=== PATIENT | female | born 1960 | race African-American/Black ===

== ENCOUNTER → 2017-12-07 09:50 | Outpatient (CLI) | payer BC, SELFPAY ==
--- NOTE | 2017-12-07 10:00 | FL_ITS ---
EXAM: Barium swallow/esophagram. INDICATION: ITS.REASON: CHRONIC CONSTIPATION ORDERING PHYSICIAN: Nimco Phipps MD PATIENT AGE: 56 years COMPARISON: None TECHNIQUE: In the upright position the patient was observed to swallow barium in both the AP and lateral view. The cervical esophagus was examined under fluoroscopy with images obtained. The patient was then placed prone in the right anterior oblique position and was observed to swallow barium with Valsalva technique . FLUOROSCOPY TIME: 1 minute and 4 seconds FINDINGS: There was no evidence of aspiration. There was normal peristalsis. No filling defects or mucosal abnormalities. No masses or strictures. IMPRESSION: Negative barium swallow.
== END ==
PROVIDERS: Family Provider Family Medicine; PCP Family Medicine; Visit Provider Emergency Medicine
DX: K59.09 Other constipation (principal)
CPT/HCPCS: 74220

== ENCOUNTER 2020-06-01 11:03 | Emergency (ER) | payer BC, SELFPAY ==
[2020-06-01 11:10] VITALS: BP 126/76; PULSE 72; RESP 19; TEMP 36.9; O2SAT 98; BMI 20.2
--- NOTE | 2020-06-01 11:51 | HMH.EDUTC ---
[facility] Disposition Clinical Impression: Hand pain Qualifiers: Laterality: right Qualified Code(s): M79.641 - Pain in right hand Disposition: Home, Self-Care Condition on Discharge: Good Instructions: DI for Chronic Pain -- Adult, DI for Rheumatoid Arthritis, Celecoxib Additional Instructions: Take medication as prescribed Follow up with your Family Doctor if no improvement or any worsening of symptoms Return if needed Straight to ER if any life threatening symptoms Prescriptions: Celecoxib 200 mg PO DAILY #30 cap Prescription Printed Referrals: Salvador Zamora MD [Primary Care Provider] - As needed Time of Disposition: 12:04 Medical Decision Making - Ang Inquiry Pt receiving controlled substance: No Ang was queried for this patient: No Vital Signs: 06/01/20 11:10 06/01/20 12:05 Temperature 98.4 F 98.4 F Temperature Source Oral Pulse Rate 72 Pulse Rate [Right Brachial] 72 Respiratory Rate 19 19 Blood Pressure 126/76 Blood Pressure [Right Arm] 126/76 Blood Pressure Mean [Right Arm] 92 Blood Pressure Source [Right Arm] Automatic Cuff Blood Pressure Position [Right Arm] Sitting 02 Sat by Pulse Oximetry 98 Oxygen Delivery Method Room Air [facility] HPI - General Stated complaint: rght hand hurts, can't bend fingers Time Seen by Provider: 06/01/20 11:51 Mode of Arrival: Ambulatory Source of Information: Patient Limitations: No Limitations Description of Symptoms (Recalled from Triage Doc. by RN): PATIENT C/O RIGHT HAND PAIN SINCE YESTERDAY. UNABLE TO BEND FINGERS HEENT Symptoms (Recalled from RN notes): No Resp Symptoms (Recalled from RN notes): No Skin Symptoms (Recalled from RN notes): No MS Symptoms (Recalled from RN notes): Yes Functional Status (Recalled from RN notes): WNL - History of Present Illness Provider Complaint: Patient states that she has been dx before with tendonitis and arthritits State that she was on Celeccoxib and her refills run out in Mar and she has taken all of her medication States that it has helped in the past with this same pain so she wanted to see of she could get a prescription for some States that she is having pain in her hands and hurts when she bends her fingers - Related Data Home Medications Medication Instructions Recorded Confirmed docusate sodium 100 mg tablet 100 mg PO DAILY 01/19/18 02/08/18 Mineral Oil [Mineral Oil extra 30 ml PO BID 02/03/18 02/08/18 heavy 30mL UDC] Previous Rx's Medication Instructions Recorded peg 3350-electrolytes 236 240 ml PO Q10M #4000 ml 01/19/18 gram-22.74 gram-6.74 gram-5.86 gram solution peg 3350-electrolytes 236 240 ml PO Q10M #4000 ml 01/25/18 gram-22.74 gram-6.74 gram-5.86 gram solution Celecoxib 200 mg PO DAILY #30 cap 06/01/20 Allergies Allergy/AdvReac Type Severity Reaction Status Date / Time No Known Allergies Allergy Verified 02/08/18 10:15 - Worker's Comp Is this a Worker's Comp case?: No [facility] History - Hepatitis A Screen Drug use history?: No High risk sexual behaviors?: No History of sexually transmitted infection?: No Currently employed?: No Childcare worker?: No Do you have indoor plumbing?: Yes Do you have electricity?: Yes Attestation statement:: This patient has been screened for Hepatitis A risk factors. I have reviewed the patient's past medical history: Yes Medical History: Denies:: Diabetes Mellitus Type 1, Diabetes Mellitus Type 2, Lung Disease, Seizures Other Surgeries: Yes: Colonoscopy, Hysterectomy-Partial, Other - Social History Smoking Status: Never smoker Alcohol Intake: never Substance Use Type: denies use Occupational Status: other Housing: house Household Members: children Family Hx:: Hypertension, Diabetes, Cancer ROS Obtained: Yes All systems reviewed & no additional complaints, Yes Systems reviewed as appropriate & no additional complaints - Allergic/Immunologic Comments: Pain in right hand/fingers with movement Ph
[2020-06-01 12:05] VITALS: BP 126/76; PULSE 72; RESP 19; TEMP 36.9; O2SAT 98
== END 2020-06-01 12:07 | disposition home or self-care (01) ==
PROVIDERS: Emergency Provider Nurse Practitioner; PCP Family Medicine
DX: M79.641 Pain in right hand (principal)
CPT/HCPCS: 99202; G0463

== ENCOUNTER → 2020-07-24 08:46 | Outpatient (CLI) | payer BC, SELFPAY ==
--- NOTE | 2020-07-24 08:48 | XR_ITS ---
PROCEDURE: XR DEXA AXIAL SKELETON CLINICAL HISTORY: POSTMENOPAUSAL COMPARISON: No exams were available for comparison FINDINGS: The right hip BMD is 0.739 with a T-score of -1.0. The left hip BMD is 0.874 with a T-score of -0.6. The lumbar spine BMD is 1.165 with a T-score of 1.1. IMPRESSION: This patient is considered normal according to the World Health Organization criteria. Fracture risk is low. Based on these results a follow-up exam is recommended in 2 year. Dictated by: Nikunj Weiner MD 07/24/2020 18:27 Nikunj Weiner MD in [place] 07/25/2020 09:24
--- NOTE | 2020-07-24 08:49 | MM_ITS ---
PROCEDURE INFORMATION: Exam: Screening 3D Mammography Exam date and time: 07/24/2020 8:49 AM Age: 59 years old Clinical indication: Encounter for screening mammogram for malignant neoplasm of breast TECHNIQUE: Imaging protocol: Screening tomosynthesis and 2D mammography including computer-aided detection (CAD) when performed. COMPARISON: [facility] DIG MAMM-SCREEN EDUARDO 09/11/2013 4:18 PM FINDINGS: MAMMOGRAPHY: Breast composition: There are scattered areas of fibroglandular density. Mass: No new suspicious masses. Architectural distortion: No suspicious distortion. Calcifications: No suspicious calcifications. Asymmetric density: None. Skin thickening: None. Axillary adenopathy: None. IMPRESSION: No mammographic evidence of malignancy. Annual screening is recommended unless otherwise clinically indicated. ASSESSMENT: BI-RADS Category 1: Negative
== END ==
PROVIDERS: PCP Family Medicine; Visit Provider Physician Assistant
DX: Z12.31 Encounter for screening mammogram for malignant neoplasm of breast (principal); Z78.0 Asymptomatic menopausal state
CPT/HCPCS: 77063; 77067; 77080

== ENCOUNTER → 2020-11-02 12:34 | Outpatient (CLI) | payer BC, SELFPAY | PROVIDERS: PCP Family Medicine; Visit Provider Family Medicine | DX: Z20.822 Contact with and (suspected) exposure to COVID-19 (principal) | CPT/HCPCS: U0003 ==

== ENCOUNTER 2021-07-25 01:00 | Inpatient (IN) | payer BC, SELFPAY ==
[2021-07-25] VITALS (23 sets, daily range): BP systolic 114–172; BP diastolic 69–90; PULSE 52–85; RESP 12–20; TEMP 36.6–43; O2SAT 96–100; BMI 20.3
--- NOTE | 2021-07-25 01:42 | CT_ITS ---
PROCEDURE INFORMATION: Exam: CT Abdomen And Pelvis With Contrast Exam date and time: 07/25/2021 2:48 AM Age: 60 years old Clinical indication: Prior surgery; Surgery type: HX partial hysterectomy, cholecystectomy, appendectomy; Patient HX: Abdominal pain that started yesterday; Additional info: Abd pain TECHNIQUE: Imaging protocol: Computed tomography of the abdomen and pelvis with contrast. Radiation optimization: All CT scans at this facility use at least one of these dose optimization techniques: automated exposure control; mA and/or kV adjustment per patient size (includes targeted exams where dose is matched to clinical indication); or iterative reconstruction. Contrast material: ISOVUE; Contrast volume: 75 ml; Contrast route: IV; COMPARISON: DX BE FL barium enema 02/03/2018 11:36 AM FINDINGS: Lungs: Clear basilar lung parenchyma. Pleural spaces: No pleural fluid. Heart: Normal heart size. Liver: Normal. No mass. Gallbladder and bile ducts: Normal. No calcified stones. No ductal dilation. Pancreas: Normal. No ductal dilation. Spleen: Scattered splenic granulomas. Adrenal glands: Normal. No mass. Kidneys and ureters: Kidneys enhance symmetrically and demonstrate no evidence of mass, calculus, obstruction, or inflammation. Stomach and bowel: High-density material in the stomach is likely ingested medication or mineral containing dietary supplement. Diffusely dilated small bowel with severe dilation distally. Small bowel feces noted. Maximal diameter of obstructed small bowel is 4.3 cm. Transition point appears to be in the distal ileum although the etiology unclear. Far distal small bowel is decompressed. There is a large volume fecal debris throughout the colon but this is not the obstructing process. Appendix: No evidence of appendicitis. Intraperitoneal space: Low volume free fluid. No free air. Vasculature: Unremarkable. No abdominal aortic aneurysm. Lymph nodes: Unremarkable. No enlarged lymph nodes. Urinary bladder: Unremarkable as visualized. Reproductive: Features of prior hysterectomy noted. No evidence of vaginal cuff or adnexal mass. Bones/joints: Unremarkable. No acute fracture. Soft tissues: Unremarkable. IMPRESSION: Exam demonstrates high-grade small-bowel obstruction, likely due to adhesions. There is low volume free fluid but no free air.
[2021-07-25 01:51] LABS: Microscopic, Urine URINE MICROSCOPIC (MICROSCOPIC)
[2021-07-25 02:00] LABS: Appearance,Urine CLEAR (Clear); Blood, Urine TRACE-I (Negative); Color,Urine YELLOW (Yellow); Glucose,Urine (UA) Negative (Negative); Ketones,Urine 2+ (Negative); Leukocyte Esterase,Urine TRACE (Negative); Nitrate,Urine Negative (Negative); PH,Urine 5.5 (5.0-8.5); Protein,Urine Negative (Negative); Specific Gravity, Urine >= 1.030 (1.005-1.030); Urobilinogen,Urine 0.2 EU/dl (0.2)
[2021-07-25 02:01] LABS: Alanine Aminotransferase 21 U/L (12-78); Albumin Level 4.3 g/dl (3.5-5.0); Albumin/Globulin Ratio 1.4 (1.1-1.8); Alkaline Phosphatase 76 U/L (38-126); Amylase 67 U/L (30-110); Anion Gap 9.5 mEq/L (5-15); Aspartate Amino Transferase 27 U/L (14-36); Bilirubin,Total 0.7 mg/dl (0.2-1.3); Blood Urea Nitrogen 14 mg/dl (7-17); Calcium 9.7 mg/dl (8.4-10.2); Carbon Dioxide 33 mmol/L (22.0-30.0); Chloride 102 mmol/L (98-107); Creatinine Clearance Estimated 94 mL/min (50-200); Estimated Glomerular Filt Rate 102 ml/min (>60); GFR (African American) 124 ML/MIN (>60); Glucose 108 mg/dl (74-100); Lipase 35 U/L (23-300); Potassium 3.5 mmoL/L (3.5-5.1); Sodium 141 mmol/L (136-145); Total Protein,Serum 7.3 g/dl (6.3-8.2)
[2021-07-25 02:07] LABS: C-Reactive Protein 3.7 mg/L (0-4)
--- NOTE | 2021-07-25 02:09 | HMH.EDNVD ---
ED Disposition Clinical Impression: SBO (small bowel obstruction) Disposition: Admitted As Inpatient Condition on Discharge: Fair Instructions: DI for Acute Abdominal Pain Referrals: Salvador Zamora MD [Primary Care Provider] - - Critical Care Critical Care Time: No Attestation: On 07/25/21, the high probability of a clinically significant, sudden or life threatening deterioration of the following system(s) required my full and direct attention, intervention and personal management. The time I documented below is in addition to time spent performing reported procedures but includes the following listed in this critical care notation. Medical Decision Making - Medical Records Medical records reviewed: Yes: I reviewed the patient's medical records. - Ang Inquiry Pt receiving controlled substance: No Vital Signs: 07/25/21 01:01 Temperature 98.1 F Temperature Source Oral Pulse Rate [Left] 57 L Respiratory Rate 12 Blood Pressure [Right Arm] 119/77 Blood Pressure Mean [Right Arm] 91 02 Sat by Pulse Oximetry 100 Oxygen Delivery Method Room Air - Lab Data Lab results reviewed: Yes: I reviewed the patient's lab results. Lab Results 07/25/21 01:22: Urine Color Yellow, Urine Appearance Clear, Urine pH 5.5, Ur Specific [place] >= 1.030, Urine Protein Negative, Urine Glucose (UA) Negative, Urine Ketones 2+, Urine Blood Trace-i, Urine Nitrate Negative, Urine Bilirubin Negative, Urine Urobilinogen 0.2, Ur Leukocyte Esterase Trace, Urine RBC 3-5, Urine WBC 3-5, Ur Squamous Epith Cells 3-5, Calcium Oxalate Crystal 1+, Urine Bacteria 1+ 07/25/21 01:22: Sodium 141, Potassium 3.5, Chloride 102, Carbon Dioxide 33 H, Anion Gap 9.5, BUN 14, Creatinine 0.60, Estimated Creat Clear 94, Estimated GFR 102, Est GFR ( Amer) 124, Glucose 108 H, Calcium 9.7, Total Bilirubin 0.7, AST 27, ALT 21, Alkaline Phosphatase 76, C-Reactive Protein 3.7, Total Protein 7.3, Albumin 4.3, Globulin 3.0, Albumin/Globulin Ratio 1.4, Amylase 67, Lipase 35 07/25/21 01:22: Lactate 1.0 07/25/21 01:22: Troponin I < 0.01 07/25/21 02:07: WBC 6.6, RBC 5.50 H, Hgb 14.2, Hct 44.4, MCV 80.8 L, MCH 25.9 L, MCHC 32.0, RDW 14.8, Plt Count 274, MPV 8.2, Neut % (Auto) 72.5, Lymph % (Auto) 18.3, [place] % (Auto) 6.4, Eos % (Auto) 1.3, Baso % (Auto) 1.4, Neut # (Auto) 4.8, Lymph # (Auto) 1.2, [place] # (Auto) 0.4, Eos # (Auto) 0.1, Baso # (Auto) 0.1, ESR 16 Result diagrams: 07/25/21 02:07 07/25/21 01:22 Orders (Tests/Meds): ED MEDICATIONS Generic Name Dose Route Start Last Admin Trade Name Freq PRN Reason Stop Dose Admin Lactated Ringer's 1,000 mls @ 999 mls/hr 07/25/21 01:45 07/25/21 02:00 Lactated Ringer's 1000 Ml Bag IV 07/25/21 02:45 999 mls/hr .Q1H1M OBINNA Administration Sodium Chloride 8 ml 07/25/21 01:57 Sodium Chloride 0.9% 10ml Vial IV 08/24/21 01:56 NEEDED PRN dilute pepcid Discontinued Medications Generic Name Dose Route Start Last Admin Trade Name Freq PRN Reason Stop Dose Admin Famotidine 20 mg 07/25/21 01:57 07/25/21 02:00 Famotidine 20mg/2ml Vial IV 07/25/21 01:58 20 mg ONCE ONE Administration Iopamidol 75 ml 07/25/21 02:59 07/25/21 03:01 Iopamidol-370 (76%);100ml Bottle IV 07/25/21 03:00 75 ml ONCE ONE Administration Ketorolac Tromethamine 30 mg 07/25/21 01:42 07/25/21 02:00 Ketorolac 30mg/Ml Vial IV 07/25/21 01:43 30 mg ONCE ONE Administration Metoclopramide HCl 10 mg 07/25/21 01:57 07/25/21 02:00 Metoclopramide Hcl 10mg/2ml Vial IVP 07/25/21 01:58 10 mg ONCE ONE Administration Ondansetron HCl 4 mg 07/25/21 01:42 07/25/21 02:00 Ondansetron 4mg/2ml Vial IV 07/25/21 01:43 4 mg ONCE ONE Administration Sodium Chloride 10 ml 07/25/21 02:59 07/25/21 03:01 Sodium Chloride 0.9% 10ml Syr (Rad Only) IV 07/25/21 03:00 10 ml ONCE ONE Administration ORDERS Category Date Time Status Troponin I Q3H Lab 07/25/21 05:00 Ordered Troponi
--- NOTE | 2021-07-25 02:10 | PC.NURSE ---
Patient is currently resting in bed. Remains hemodynamically stable.
[2021-07-25 02:14] LABS: Basophils # 0.1 K/mm3 (0-0.2); Basophils % 1.4 % (0.1-2.0); Eosinophils # 0.1 K/mm3 (0.0-0.4); Eosinophils % 1.3 % (0.1-12.0); Hematocrit 44.4 % (37.0-47.0); Hemoglobin 14.2 g/dL (12.2-16.2); Lymphocytes # 1.2 K/mm3 (0.7-4.5); Lymphocytes % 18.3 % (10-50); Mean Corpuscular Hemoglobin 25.9 pg (27.0-31.2); Mean Corpuscular Volume 80.8 fl (81-99); Mean Platelet Volume 8.2 fl (7.4-10.4); Monocytes # 0.4 K/mm3 (0.1-1.0); Monocytes % 6.4 % (1.7-9.3); Neutrophils # 4.8 K/mm3 (1.8-7.8); Neutrophils % 72.5 % (37.0-80.0); Platelet Count 274 K/mm3 (142-424); Red Cell Distribution Width 14.8 % (11.5-17.5); White Blood Count 6.6 K/mm3 (4.8-10.8)
[2021-07-25 02:18] LABS: Bilirubin,Urine Negative (Negative)
[2021-07-25 02:21] LABS: Bacteria,Urine 1+ /lpf; Calcium Oxalate Crystals,Urine 1+ /lpf
--- NOTE | 2021-07-25 02:29 | ECG_ITS ---
APPROVED REPORT Exam: Resting ECG HR:51 bpm ECG Measurements Heart Rate 51 AXES ID 159 P 65 QRSd 88 QRS 26 QT 403 T 39 QTc 381 Conclusion SINUS BRADYCARDIA LEFT ATRIAL ENLARGEMENT [-0.15mV P-WAVE IN V1/V2] ABNORMAL ECG UNCONFIRMED REPORT Electronically signed by : Tomas Noland MD 07/25/2021 08:08:28
[2021-07-25 02:33] LABS: Troponin I < 0.01 ng/ml (0.00-0.034)
[2021-07-25 03:40] LABS: Erythrocyte Sedimentation Rate 16 mm/hr (0-30)
[2021-07-25 03:59] LABS: Coronavirus 19, PCR Not Detected (NotDetected); Influenza A, PCR Not Detected (NotDetected); Influenza B, PCR Not Detected (NotDetected)
--- NOTE | 2021-07-25 05:08 | PC.NURSE ---
PT ARRIVED TO FLOOR VIA W/C FROM ED W/STAFF @ [id number]
--- NOTE | 2021-07-25 06:22 | PC.NURSE ---
DR NEWBERRY NOTIFIED OF CONSULT
[2021-07-25 06:37] LABS: Chloride 106 mmol/L (98-107); Potassium 3.7 mmoL/L (3.5-5.1); Sodium 139 mmol/L (136-145)
[2021-07-25 06:39] LABS: Basophils # 0.1 K/mm3 (0-0.2); Basophils % 0.8 % (0.1-2.0); Eosinophils # 0.1 K/mm3 (0.0-0.4); Hematocrit 38.8 % (37.0-47.0); Hemoglobin 12.8 g/dL (12.2-16.2); Lymphocytes # 1.6 K/mm3 (0.7-4.5); Lymphocytes % 23.3 % (10-50); Mean Corpuscular HGB Conc 32.9 g/dL (31.8-35.4); Mean Corpuscular Hemoglobin 26.6 pg (27.0-31.2); Mean Corpuscular Volume 80.9 fl (81-99); Mean Platelet Volume 7.8 fl (7.4-10.4); Monocytes # 0.4 K/mm3 (0.1-1.0); Monocytes % 5.5 % (1.7-9.3); Neutrophils # 4.7 K/mm3 (1.8-7.8); Neutrophils % 69.4 % (37.0-80.0); Platelet Count 214 K/mm3 (142-424); Red Cell Distribution Width 14.7 % (11.5-17.5); White Blood Count 6.7 K/mm3 (4.8-10.8)
[2021-07-25 06:40] LABS: Anion Gap 7.7 mEq/L (5-15); Blood Urea Nitrogen 13 mg/dl (7-17); Carbon Dioxide 29 mmol/L (22.0-30.0); Creatinine Clearance Estimated 94 mL/min (50-200); Estimated Glomerular Filt Rate 102 ml/min (>60); GFR (African American) 124 ML/MIN (>60)
[2021-07-25 06:41] LABS: Calcium 9.3 mg/dl (8.4-10.2); Glucose 94 mg/dl (74-100)
--- NOTE | 2021-07-25 07:28 | P.CONPHA_ITS ---
[facility] Pharmacy VTE Monitoring - Patient Demographics Admission date: 07/25/21 Report Date: 07/25/21 Time: 07:28 Allergies/Adverse Reactions: Patient Allergies No Known Allergies Allergy (Verified 07/25/21 05:40) Height: 1.7 m Weight: 58.74 kg Patient Problems: Current Active Problems SBO (small bowel obstruction) (Acute) - VTE Risk Labs: VTE Related Lab Results Hgb 12.8 g/dL (12.2-16.2) 07/25/21 06:15 Hct 38.8 % (37.0-47.0) 07/25/21 06:15 Plt Count 214 K/mm3 (142-424) 07/25/21 06:15 BUN 13 mg/dl (7-17) 07/25/21 06:15 Creatinine 0.60 mg/dl (0.52-1.04) 07/25/21 06:15 Estimated Creat Clear 94 mL/min (50-200) 07/25/21 06:15 Was VTE Risk Assessment Performed: Yes VTE Score: 3 VTE Risk Level: Low Risk Clinical Trial Participant: No - Prophylaxis VTE Prophylaxis Ordered?: Yes Types of VTE Prophylaxis: TEDS Knee High
--- NOTE | 2021-07-25 07:29 | HMH.PHAINT ---
HOME MEDICATION LIST VERIFIED USING LIST FROM [facility]
--- NOTE | 2021-07-25 08:27 | FL_ITS ---
FINAL REPORT CLINICAL HISTORY: . small bowel obstruction, pt was unable to finish this series due to vomiting, pt taken to surgery by Dr. Angeles. FINDINGS: SMALL BOWEL FOLLOW THROUGH HISTORY Small bowel obstruction PROCEDURE: The patient ingested barium. Spot and overhead films were obtained. FINDINGS: The preliminary image demonstrates a nonsspecific bowel gas pattern. There is retained ccontrast in the urinary bladder. The patient ingested contrast material. Images were obtained to 30 minutes demonstrating dilated mid small bowel loops worrisome for obstruction. Further imaging was not obtained as the patient was taken to the operating room. FLUOROSCOPY TIME: 0 IMPRESSION: Incomplete smallbowel study demonstratingdilated small bowel loops worrisome for obstruction. Films reviewed , interpreted and dictated by Dr. Lawrence Transcribed by Jean Kramer PA-C. Reviewed, Interpreted and Dictated by Keny Lawrence III, MD Transcribed by MAL Treviño Authenticated by Keny Lawrence III, MD on 08/08/2021 11:30:57 AM [facility]
--- NOTE | 2021-07-25 08:28 | HMH.GSCON ---
*Admission Date: 07/25/21 *Reason for consult:: Small bowel obstruction *History of present illness: This is a 60-year-old female seen in consultation from the service from Dr. Zamora for evaluation regarding small bowel obstruction. She presented to the emergency department overnight with increasing abdominal pain and episodic nausea/vomiting. She states that she has a history of severe constipation only goes about every week or so . She did have what she describes as a fairly normal bowel movement yesterday and states that she did pass flatus yesterday. Evaluation emergency department included a CT scan that revealed dilated small bowel and changes consistent with possible high-grade obstruction. Currently, she states she feels better . She is in less pain but has not passed flatus or had a bowel movement since admission. Review of Systems - Constitutional Denies body ache(s) - *Cardiovascular Denies chest pain - *Respiratory Denies cough - *Gastrointestinal Reports abdominal pain, Reports nausea, Reports vomiting - *Neurologic Denies abnormal movements, Denies seizure-like activity - Psychiatric Denies anxiety [facility] History Medical History: Denies:: Cancer, Diabetes Mellitus Type 1, Diabetes Mellitus Type 2, Lung Disease, MRSA, Seizures *Have you ever received a pneumonia vaccine?: No *Have you received a flu vaccine this season?: Yes Other Surgeries: Yes: Appendectomy, Cholecystectomy, Colonoscopy, Hysterectomy-Partial, Other - *Social History Smoking Status: Never smoker Alcohol Intake: never Substance Use Type: denies use *Occupational Status:: employed Housing: house Household Members: children *Travel in the last 8 weeks: None Family Hx:: No significant family history Meds Home Medications Medication Instructions Recorded Confirmed Type Celecoxib 200 mg PO DAILY #30 cap 06/01/20 07/25/21 Rx PARoxetine HCL [Paxil 20mg Tablet] 20 mg PO DAILY 07/25/21 07/25/21 History Allergies Allergy/AdvReac Type Severity Reaction Status Date / Time No Known Allergies Allergy Verified 07/25/21 05:40 Exam Vital signs and Labs for Last 24 Hours: Temp Pulse Resp BP Pulse Ox 98.3 F 58 L 17 114/69 97 07/25/21 05:00 07/25/21 05:00 07/25/21 05:00 07/25/21 05:00 07/25/21 05:54 Laboratory Results - last 24 hr 07/25/21 01:22: Urine Color Yellow, Urine Appearance Clear, Urine pH 5.5, Ur Specific [place] >= 1.030, Urine Protein Negative, Urine Glucose (UA) Negative, Urine Ketones 2+, Urine Blood Trace-i, Urine Nitrate Negative, Urine Bilirubin Negative, Urine Urobilinogen 0.2, Ur Leukocyte Esterase Trace, Urine RBC 3-5, Urine WBC 3-5, Ur Squamous Epith Cells 3-5, Calcium Oxalate Crystal 1+, Urine Bacteria 1+ 07/25/21 01:22: Sodium 141, Potassium 3.5, Chloride 102, Carbon Dioxide 33 H, Anion Gap 9.5, BUN 14, Creatinine 0.60, Estimated Creat Clear 94, Estimated GFR 102, Est GFR ( Amer) 124, Glucose 108 H, Calcium 9.7, Total Bilirubin 0.7, AST 27, ALT 21, Alkaline Phosphatase 76, C-Reactive Protein 3.7, Total Protein 7.3, Albumin 4.3, Globulin 3.0, Albumin/Globulin Ratio 1.4, Amylase 67, Lipase 35 07/25/21 01:22: Lactate 1.0 07/25/21 01:22: Troponin I < 0.01 07/25/21 02:07: WBC 6.6, RBC 5.50 H, Hgb 14.2, Hct 44.4, MCV 80.8 L, MCH 25.9 L, MCHC 32.0, RDW 14.8, Plt Count 274, MPV 8.2, Neut % (Auto) 72.5, Lymph % (Auto) 18.3, [place] % (Auto) 6.4, Eos % (Auto) 1.3, Baso % (Auto) 1.4, Neut # (Auto) 4.8, Lymph # (Auto) 1.2, [place] # (Auto) 0.4, Eos # (Auto) 0.1, Baso # (Auto) 0.1, ESR 16 07/25/21 03:50: SARS-CoV-2 (PCR) Not detected, Influenza A Untype (PCR) Not detected, Influenza Type B (PCR) Not detected 07/25/21 06:15: Sodium 139, Potassium 3.7, Chloride 106, Carbon Dioxide 29, Anion Gap 7.7, BUN 13, Creatinine 0.60, Estimated Creat Clear 94, Estimated GFR 102, Est GFR ( Amer) 124, Glucose 94, Calcium 9.3 07/25/21 06:15: WBC 6.7, RBC 4.80, Hgb 12.8, Hct 38.8, MCV 80.9 L, MCH 26.6 L, MCHC 32.9, RDW 14.7
--- NOTE | 2021-07-25 08:30 | HMH.HP ---
*Admission Date: 07/25/21 *Chief complaint: periumbilical pain *History of present illness: Ms. Cantu is a 60-year-old female with a history of arthritis. She began having periumbilical abdominal pain on at around 4:30 AM while she was at work. She went home and laid down and the pain continued to worsen. At 12 AM last night she decided to come to the emergency room. This pain was similar to pain she had 10 to 15 years ago when she had a small bowel obstruction. She states at that time, it resolved on its own and she has had no problems since. She does have a history of constipation and usually only has bowel movements on the weekends. She states she did have a small bowel movement yesterday. She vomited yesterday but has had no vomiting or nausea today. Her pain has improved. [facility] History I have reviewed the patient's past medical history: Yes Medical History: Denies:: Cancer, Diabetes Mellitus Type 1, Diabetes Mellitus Type 2, Lung Disease, MRSA, Seizures *Have you ever received a pneumonia vaccine?: No *Have you received a flu vaccine this season?: Yes Other Medical History: Reports: Arthritis, Other (history of SBO) Other Surgeries: Yes: Appendectomy, Cholecystectomy, Colonoscopy, Hysterectomy-Partial, Other - *Social History Smoking Status: Never smoker Alcohol Intake: never Substance Use Type: denies use *Occupational Status:: employed Housing: house Household Members: children *Travel in the last 8 weeks: None Family Hx:: Coronary Artery Disease, Diabetes, Hypertension Review of Systems - Constitutional Denies fever(s), Denies weakness - Eyes Denies blurry vision, Denies double vision - ENT Denies nasal congestion, Denies sore throat - *Cardiovascular Denies chest pain, Denies shortness of breath - *Respiratory Denies cough, Denies shortness of breath - *Gastrointestinal Reports abdominal pain (periumbilical), Reports constipation, Reports vomiting, Denies loose stools, Denies nausea - *Genitourinary Denies difficulty urinating, Denies painful urination - *Musculoskeletal Denies joint pain - *Neurologic Denies headache(s), Denies seizure-like activity, Denies dizziness, Denies weakness Meds Home Medications Medication Instructions Recorded Confirmed Type Celecoxib 200 mg PO DAILY #30 cap 06/01/20 07/25/21 Rx PARoxetine HCL [Paxil 20mg Tablet] 20 mg PO DAILY 07/25/21 07/25/21 History Allergies Allergy/AdvReac Type Severity Reaction Status Date / Time No Known Allergies Allergy Verified 07/25/21 05:40 Exam Vital signs and Labs for Last 24 Hours: Temp Pulse Resp BP Pulse Ox 98.3 F 58 L 17 114/69 97 07/25/21 05:00 07/25/21 05:00 07/25/21 05:00 07/25/21 05:00 07/25/21 05:54 Laboratory Results - last 24 hr 07/25/21 01:22: Urine Color Yellow, Urine Appearance Clear, Urine pH 5.5, Ur Specific [place] >= 1.030, Urine Protein Negative, Urine Glucose (UA) Negative, Urine Ketones 2+, Urine Blood Trace-i, Urine Nitrate Negative, Urine Bilirubin Negative, Urine Urobilinogen 0.2, Ur Leukocyte Esterase Trace, Urine RBC 3-5, Urine WBC 3-5, Ur Squamous Epith Cells 3-5, Calcium Oxalate Crystal 1+, Urine Bacteria 1+ 07/25/21 01:22: Sodium 141, Potassium 3.5, Chloride 102, Carbon Dioxide 33 H, Anion Gap 9.5, BUN 14, Creatinine 0.60, Estimated Creat Clear 94, Estimated GFR 102, Est GFR ( Amer) 124, Glucose 108 H, Calcium 9.7, Total Bilirubin 0.7, AST 27, ALT 21, Alkaline Phosphatase 76, C-Reactive Protein 3.7, Total Protein 7.3, Albumin 4.3, Globulin 3.0, Albumin/Globulin Ratio 1.4, Amylase 67, Lipase 35 07/25/21 01:22: Lactate 1.0 07/25/21 01:22: Troponin I < 0.01 07/25/21 02:07: WBC 6.6, RBC 5.50 H, Hgb 14.2, Hct 44.4, MCV 80.8 L, MCH 25.9 L, MCHC 32.0, RDW 14.8, Plt Count 274, MPV 8.2, Neut % (Auto) 72.5, Lymph % (Auto) 18.3, [place] % (Auto) 6.4, Eos % (Auto) 1.3, Baso % (Auto) 1.4, Neut # (Auto) 4.8, Lymph # (Auto) 1.2, [place] # (Auto) 0.4, Eos # (Auto) 0.1, Baso # (Auto) 0
--- NOTE | 2021-07-25 11:30 | HMH.ANESCL ---
[facility] Anesthesia Checklist - Patient Identification Patient Identification: Arm Band - Structural Data Admitted From: Home Planned Operative Procedure/s: Exploratory Laparotomy Consent for Planned Operative Procedure(s) Verified: Yes Verified Documents: Surgical Consent, History and Physical - NPO Status Verified Time NPO: 00:00 - Additional verifications Anesthesia Reactions: No - Airway Assessment C-Spine Mobility Assessed: Yes (mp2) TMJ Mobility Assessed: Yes Dentition: Good Dentition - Neurological Assessment Level of Consciousness: Awake, Alert - Anesthesia Plan Anesthesia Risk discussed: Yes Anesthesia Plan: Verified ASA Class: II Anesthesia Type: General [facility] History I have reviewed the patient's past medical history: Yes Medical History: Reports:: Anxiety Denies:: Cancer, Diabetes Mellitus Type 1, Diabetes Mellitus Type 2, Lung Disease, MRSA, Seizures *Have you ever received a pneumonia vaccine?: No *Have you received a flu vaccine this season?: Yes Other Medical History: Reports: Arthritis, Other (history of SBO) Anesthesia experience/problems:: nac Other Surgeries: Yes: Appendectomy, Cholecystectomy, Colonoscopy, Hysterectomy-Partial, Other - *Social History Smoking Status: Never smoker Alcohol Intake: never Substance Use Type: denies use *Occupational Status:: employed Housing: house Household Members: children *Travel in the last 8 weeks: None Family Hx:: Coronary Artery Disease, Diabetes, Hypertension
[2021-07-25 15:06] LABS: Microscopic,Cath URINE MICROSCOPIC (MICROSCOPIC)
--- NOTE | 2021-07-25 15:15 | HMH.OPNOTE ---
Date of procedure: 07/25/21 Pre-op Diagnosis:: Small bowel obstruction Post-op Diagnosis:: Same Procedure performed:: Exploratory laparotomy Extensive lysis of adhesions Partial small bowel resection (x2) Surgeon:: Román Angeles MD Waistband Setter(s):: Dr. Patterson Anesthesia: GETA Estimated blood loss (mL): 50 Operative findings:: Dense adhesions throughout abdominal cavity Multiple adhesions essentially between all loops of small bowel Fusion of mid small bowel to anterior abdominal wall at site of prior laparotomy closure Erosion of old suture material through small bowel at 2 sites along the midline Extensive adhesions encroaching upon the bladder No obvious bladder injury (infusion of blue dye revealed no leak) Operative note:: After informed consent was obtained the patient was taken to the operating room placed in the supine position. General anesthesia was induced and her abdomen was prepped and draped in a sterile fashion. A midline laparotomy incision initially beginning above the umbilicus was created. The abdomen was entered with a combination of sharp dissection and electrocautery. No obvious bowel injury noted initially. Transudative fluid was evacuated from the abdominal cavity. Dense adhesions along the anterior abdominal wall were immediately encountered. A combination of sharp dissection with Metzenbaum scissors and blunt dissection was utilized to take down multiple loops along each lateral margin. Interloop adhesions were also encountered and these were also carefully taken down to the degree possible through the initial incision. Along the prior midline incision was the adhesions between small bowel and anterior abdominal wall were exceptionally dense and essentially fusion was noted. Loops of bowel were carefully taken down as the midline incision was extended caudally. Dissection revealed prior suture material eroding through the small bowel. Enterotomies at 2 separate sites were created during dissection. To minimize spillage the enterotomies were closed with running Nurolon. As the small bowel was elevated the overall degree of adhesions became more apparent. The adhesive tissue (fusion of fascia/bowel) extended towards the bladder. No obvious bladder injury was noted. Instillation of blue dye and distention of the bladder was completed. No obvious leak was seen. Essentially no portion of the small bowel was spared from the dense adhesions and multiple interloop adhesions were taken down with Metzenbaum scissors. Once freed from ligament of Treitz to cecum, the small bowel was carefully elevated and methodically evaluated for injury. The proximal/mid portion which included the above-stated rents was noted to be somewhat ischemic. This portion was elevated and utilizing a 75 mm linear stapling device the proximal and distal portion was transected. The intervening mesentery was taken with the Enseal device. Further evaluation distal to this point revealed an additional point of mesenteric injury and associated small bowel ischemic changes. The decision was made to resect this portion of small bowel as well. This was completed in the same manner as the initial proximal/mid small bowel as stated above. Anastomoses were completed at both sites utilizing the 75 mm linear stapler and the TX stapling device to close the common otomy. Imbrication with 3-0 Nurolon was completed. The crotch was also imbricated with 3-0 Nurolon at both sites. Both mesenteric defects were closed with running 2-0 Vicryl. The abdominal cavity was thoroughly irrigated. Fascia was closed with #2 Novafil and skin was stapled. Dressings were applied and the patient was transferred to recovery in stable condition. Condition: stable Disposition: PACU Specimens:: Partial small bowel resection (x2) Complications:: No immediate
--- NOTE | 2021-07-25 15:38 | P.PN_ITS ---
[facility] Anesthesia Record Part I Intake, IV Amount: 2,000 Estimated blood loss (mL): 200 Urine output (mL): 200 Blood Pressure: 172/72 SaO2: 97 Pulse Rate: 65 Respiratory Rate: 18 Temperature: 98.1 F Patient is:: Drowsy, Stable Stable to PACU at:: 15:25
--- NOTE | 2021-07-25 15:48 | PC.NURSE ---
1540- at bedside, notified and showed pt's edema to left upper arm that was noted post procedure, swelling is improving to site, pt moving left upper ext and hand w/out difficulty and equal paper ruler noted to both hands, pt reports positive sensation to left hand and wiggling fingers w/out difficulty, warm compress re-applied and extremity elevated on pillow, will continue to monitor
--- NOTE | 2021-07-25 16:28 | PC.NURSE ---
1557-detailed report called to AdeolaRN, pt continues to move LUE w/out difficulty and creative services director equally, denies pain or tingling to left hand, edema noted to be improving, pt denies pain or nausea, very minimal brownish/greenish drainage noted to ng suction, vss, pt stable 1601-pt transported to 2nd floor room 202 via hospital bed w/eitan rails up and left in care of YOLI Mir with bed locked in lowest position, vss, pt stable
--- NOTE | 2021-07-25 16:32 | SUR.OPER ---
1501-Upon completion of procedure, drapes removed and left upper extremity/bicep area noted to be edematous. Bandages to IV removed at this time. Iv appeared to be working properly after flushing and assessing site, IV discontinued per JAYLENE Marin/YOLI Linares as precautions. #22 ga IV started per YOLI Tay to left forearm. Warm compress applied to left arm and elevated on pillows. Will continue to monitor.
--- NOTE | 2021-07-25 16:45 | SUR.OPER ---
1430-family updated at this time
[2021-07-25 17:19] LABS: Appearance,Urine/Cath CLEAR (Clear); Blood, Urine/Cath Negative (Negative); Color,Urine/Cath YELLOW (Yellow); Glucose,Urine/Cath (UA) Negative (Negative); Ketones,Urine/Cath 1+ (Negative); Leukocyte Esterase,Cath Negative (Negative); Nitrate,Cath Negative (Negative); PH,Urine/Cath 5.5 (5.0-8.5); Protein,Urine/Cath TRACE (Negative); Specific Gravity, Urine/Cath 1.025 (1.005-1.030); Urobilinogen,Cath 0.2 EU/dl (0.2)
[2021-07-25 17:23] LABS: Bilirubin,Cath 1+ (Negative)
--- NOTE | 2021-07-25 17:46 | PC.NURSE ---
PT IS RESTING IN BED WITH FAMILY AT BEDSIDE. PT HAS BEEN VERY DROWSY SINCE ARRIVING BACK TO THE FLOOR FROM PACU BUT IS ABLE TO ANSWER QUESTIONS AND FOLLOW COMMANDS. DRESSING NOTED TO MIDLINE INCISION WITH SCAN AMOUNT OF DRAINAGE (UNCHANGED SINCE ARRIVING TO THE FLOOR). PT STATES SHE IS NOT HAVING ANY PAIN AT THIS TIME. NG TUBE NOTED TO THE RT NARE CONNECTED TO LOW WALL CONTINUOUS SUCTION. LUNG SOUNDS CLEAR. POST OP VSS. SKUDS NOTED TO BLE. WILL CONTINUE TO MONITOR.
[2021-07-25 17:50] LABS: RBC,Urine/Cath Occasional # /hpf (0-3); WBC,Urine/Cath Occasional #/hpf (0-3)
[2021-07-25 17:51] LABS: Bacteria,Urine/Cath TRACE /lpf; CA Oxalate Crystals,Ur/Cath 1+ /lpf; Squamous Epithelial Ur./Cath Occasional #/hpf (0-5); Yeast,Urine/Cath OCC
[2021-07-26] VITALS (9 sets, daily range): BP systolic 125–155; BP diastolic 69–85; PULSE 61–110; RESP 15–20; TEMP 36.7–37.9; O2SAT 95–100; BMI 20.9
--- NOTE | 2021-07-26 06:45 | PC.NURSE ---
Patient has rested well this shift, family at bedside. Pt remains A/O x3. Mota draining at bedside. Pt has used 3mg of morphine from PANTOMIMIST pump this shift. Midline incision noted with scant drainage on dressing. NG noted to right nare connected to low wall suction with 300ml in output this far in shift. Oral swabs have been given per patient's request.
[2021-07-26 06:54] LABS: Basophils # 0.1 K/mm3 (0-0.2); Eosinophils # 0.1 K/mm3 (0.0-0.4); Eosinophils % 1.3 % (0.1-12.0); Hematocrit 40.8 % (37.0-47.0); Hemoglobin 13.1 g/dL (12.2-16.2); Lymphocytes # 0.8 K/mm3 (0.7-4.5); Lymphocytes % 10.7 % (10-50); Mean Corpuscular HGB Conc 32.1 g/dL (31.8-35.4); Mean Corpuscular Volume 80.9 fl (81-99); Mean Platelet Volume 7.5 fl (7.4-10.4); Monocytes # 0.3 K/mm3 (0.1-1.0); Monocytes % 4.7 % (1.7-9.3); Neutrophils # 5.7 K/mm3 (1.8-7.8); Neutrophils % 82.2 % (37.0-80.0); Platelet Count 232 K/mm3 (142-424); Red Blood Count 5.04 M/mm3 (4.20-5.40); Red Cell Distribution Width 14.9 % (11.5-17.5); White Blood Count 6.9 K/mm3 (4.8-10.8)
[2021-07-26 07:48] LABS: Chloride 107 mmol/L (98-107); Potassium 3.8 mmoL/L (3.5-5.1); Sodium 141 mmol/L (136-145)
[2021-07-26 07:51] LABS: Blood Urea Nitrogen 13 mg/dl (7-17); Creatinine Clearance Estimated 83 mL/min (50-200); Estimated Glomerular Filt Rate 86 ml/min (>60); GFR (African American) 104 ML/MIN (>60)
[2021-07-26 07:52] LABS: Anion Gap 6.8 mEq/L (5-15); Calcium 8.3 mg/dl (8.4-10.2); Carbon Dioxide 31 mmol/L (22.0-30.0); Glucose 128 mg/dl (74-100)
--- NOTE | 2021-07-26 08:45 | HMH.ACPN2 ---
Internal Medicine - PN: Subj *Date: 07/26/21 *Time: 08:45 Interval history: The patient looks quite good. I came back and saw her last night after her surgery and she was awake and alert. She had some swelling of the right arm but that seems to be improving. This morning she is smiling. She has expected tenderness of the abdomen. Dressings are in place. She does not have bowel sounds yet. Her lungs are clear and her heart rate is regular. Her vital signs look good and she is afebrile. Exam Vital signs and Labs for Last 24 Hours: Temp Pulse Resp BP Pulse Ox 98.1 F 80 15 140/76 100 07/26/21 08:00 07/26/21 08:00 07/26/21 08:00 07/26/21 08:00 07/26/21 08:00 Laboratory Results - last 24 hr 07/25/21 11:50: Urine Color Yellow, Urine Appearance Clear, Urine pH 5.5, Ur Specific [place] 1.025, Urine Protein Trace, Urine Glucose (UA) Negative, Urine Ketones 1+, Urine Blood Negative, Urine Nitrate Negative, Urine Bilirubin 1+ A, Urine Urobilinogen 0.2, Ur Leukocyte Esterase Negative, Urine RBC Occasional, Urine WBC Occasional, Ur Squamous Epith Cells Occasional, Calcium Oxalate Crystal 1+, Urine Bacteria Trace, Urine Yeast Occ 07/26/21 06:34: WBC 6.9, RBC 5.04, Hgb 13.1, Hct 40.8, MCV 80.9 L, MCH 26.0 L, MCHC 32.1, RDW 14.9, Plt Count 232, MPV 7.5, Neut % (Auto) 82.2 H, Lymph % (Auto) 10.7, [place] % (Auto) 4.7, Eos % (Auto) 1.3, Baso % (Auto) 1.0, Neut # (Auto) 5.7, Lymph # (Auto) 0.8, [place] # (Auto) 0.3, Eos # (Auto) 0.1, Baso # (Auto) 0.1 07/26/21 06:34: Sodium 141, Potassium 3.8, Chloride 107, Carbon Dioxide 31 H, Anion Gap 6.8, BUN 13, Creatinine 0.70, Estimated Creat Clear 83, Estimated GFR 86, Est GFR ( Amer) 104, Glucose 128 H, Calcium 8.3 L I & O for Last 24 hours: Intake & Output 07/23/21 07/24/21 07/25/21 07/26/21 11:59 11:59 11:59 11:59 Intake Total 3629 / 3629 Output Total 500 / 500 Balance 3129 / 3129 Weight 129 lb 8 oz 133 lb 5 oz - Constitutional no acute distress - *Routine HEENT Exam Head: Present: normocephalic Eye: Present: EOMI, PERRL ENT: Present: mucous membranes moist - *Routine Neck Exam Present: supple. Absent: lymphadenopathy - *Routine Respiratory Exam Present: CTA bilaterally - *Routine Cardiovascular Exam Present: RRR - *Routine Abdominal Exam Present: tenderness, other (Dressings are in place.). Absent: normoactive bowel sounds, distended - *Routine Extremities Exam Absent: cyanosis, clubbing, edema - *Routine Skin Exam Present: warm. Absent: rash - *Routine Neurological Exam Present: alert, oriented X3 Assessment and Plan (1) SBO (small bowel obstruction) Status: Acute Category: Medical Code(s): K56.609 - Unspecified intestinal obstruction, unspecified as to partial versus complete obstruction (2) Constipation Problem details: improved on medical therapy Status: Acute Qualifiers: Constipation type: unspecified constipation type Qualified Code(s): K59.00 - Constipation, unspecified Category: Medical Code(s): K59.00 - Constipation, unspecified - Assessment and plan all Dx Assessment and Plan for all problems:: Now postop day 1. She appears to be doing quite well.
--- NOTE | 2021-07-26 09:47 | HMH.GSPN ---
Subjective Patient reports: no new complaints, feels better, still having pain, pain is less, no flatus, no bowel movement Progress Note: A&P (1) SBO (small bowel obstruction) Status: Acute Assessment and plan: Overall, doing well status post exploratory laparotomy with extensive lysis of adhesions and small bowel resection (x2) Ambulate Ice chips Continue nasogastric decompression for now Continue Mota catheter for now secondary to extensive adhesions projecting to margin of bladder noted intraoperatively (2) Constipation Problem details: improved on medical therapy Status: Acute Exam Vital signs and Labs for Last 24 Hours: Temp Pulse Resp BP Pulse Ox 98.1 F 80 15 140/76 100 07/26/21 08:00 07/26/21 08:00 07/26/21 08:00 07/26/21 08:00 07/26/21 08:00 Laboratory Results - last 24 hr 07/25/21 11:50: Urine Color Yellow, Urine Appearance Clear, Urine pH 5.5, Ur Specific [place] 1.025, Urine Protein Trace, Urine Glucose (UA) Negative, Urine Ketones 1+, Urine Blood Negative, Urine Nitrate Negative, Urine Bilirubin 1+ A, Urine Urobilinogen 0.2, Ur Leukocyte Esterase Negative, Urine RBC Occasional, Urine WBC Occasional, Ur Squamous Epith Cells Occasional, Calcium Oxalate Crystal 1+, Urine Bacteria Trace, Urine Yeast Occ 07/26/21 06:34: WBC 6.9, RBC 5.04, Hgb 13.1, Hct 40.8, MCV 80.9 L, MCH 26.0 L, MCHC 32.1, RDW 14.9, Plt Count 232, MPV 7.5, Neut % (Auto) 82.2 H, Lymph % (Auto) 10.7, [place] % (Auto) 4.7, Eos % (Auto) 1.3, Baso % (Auto) 1.0, Neut # (Auto) 5.7, Lymph # (Auto) 0.8, [place] # (Auto) 0.3, Eos # (Auto) 0.1, Baso # (Auto) 0.1 07/26/21 06:34: Sodium 141, Potassium 3.8, Chloride 107, Carbon Dioxide 31 H, Anion Gap 6.8, BUN 13, Creatinine 0.70, Estimated Creat Clear 83, Estimated GFR 86, Est GFR ( Amer) 104, Glucose 128 H, Calcium 8.3 L I & O for Last 24 hours: Intake & Output 07/23/21 07/24/21 07/25/21 07/26/21 11:59 11:59 11:59 11:59 Intake Total 3629 / 3629 Output Total 500 / 500 Balance 3129 / 3129 Weight 129 lb 8 oz 133 lb 5 oz - Constitutional no acute distress - *Routine Respiratory Exam Absent: respiratory distress - *Routine Cardiovascular Exam Absent: tachycardia - *Routine Abdominal Exam Comments: Dressing intact. No cellulitis.
--- NOTE | 2021-07-26 15:24 | PC.NURSE ---
PT IS RESTING IN BED. PT AMBULATED IN THE ROOM 2X THIS SHIFT. TOLERATED SITTING UP IN THE CHAIR FOR A COUPLE OF HOURS. TAKING IN A FEW ICE CHIPS AND CHEWING GUM W/O DIFFICULTY. O2 SATURATION HAS MAINTAINED 95-98% ON ROOM AIR T/O THE SHIFT. 5 MG OF MORPHINE WAS CLEARED FROM CORRECTIONAL CLASSIFICATION COUNSELOR. NG TUBE NOTED TO THE RT NARE CONNECTED TO LOW WALL CONTINUOUS SUCTION (DARK GREEN DRAINAGE NOTED). DRESSING TO MIDLINE INCISION WITH SCANT AMOUNT OF DRAINAGE. BATH AND LINEN CHANGE THIS SHIFT. WILL CONTINUE TO MONITOR.
[2021-07-27] VITALS (11 sets, daily range): BP systolic 127–158; BP diastolic 79–92; PULSE 66–108; RESP 15–18; TEMP 37.2–38.2; O2SAT 91–99; BMI 20.8
--- NOTE | 2021-07-27 05:41 | PC.NURSE ---
Addendum entered by Conchita Penn RN 07/27/21 06:20: Cleared 3mg from Morphine TALK SHOW HOST pump this shift. 150ml in output from NG this shift. Original Note: Pt has rested well this shift. Remains on RA with O2 sats 91-96%. Pt has had no c/o of N/V, or pain this shift. NG to right nare connected to low wall suction is draining dark green contents. Mota is draining at bedside. Pt ambulated this shift and tolerated well. Dressing to midline is noted with scant drainage. Pt has tolerated ice chips well.
[2021-07-27 06:42] LABS: Basophils # 0.1 K/mm3 (0-0.2); Basophils % 0.9 % (0.1-2.0); Eosinophils # 0.1 K/mm3 (0.0-0.4); Eosinophils % 0.8 % (0.1-12.0); Hematocrit 34.8 % (37.0-47.0); Lymphocytes # 0.8 K/mm3 (0.7-4.5); Lymphocytes % 9.4 % (10-50); Mean Corpuscular HGB Conc 32.4 g/dL (31.8-35.4); Mean Corpuscular Hemoglobin 26.4 pg (27.0-31.2); Mean Corpuscular Volume 81.4 fl (81-99); Mean Platelet Volume 8.2 fl (7.4-10.4); Monocytes # 0.3 K/mm3 (0.1-1.0); Monocytes % 3.8 % (1.7-9.3); Neutrophils # 7.5 K/mm3 (1.8-7.8); Platelet Count 213 K/mm3 (142-424); Red Blood Count 4.28 M/mm3 (4.20-5.40); Red Cell Distribution Width 14.7 % (11.5-17.5); White Blood Count 8.9 K/mm3 (4.8-10.8)
[2021-07-27 06:44] LABS: MANUAL DIFFERENTIAL MANUAL DIFFERENTIAL (MANUAL DIFF)
[2021-07-27 06:45] LABS: Anion Gap 6.4 mEq/L (5-15); Blood Urea Nitrogen 10 mg/dl (7-17); Calcium 8.1 mg/dl (8.4-10.2); Carbon Dioxide 29 mmol/L (22.0-30.0); Chloride 107 mmol/L (98-107); Creatinine Clearance Estimated 83 mL/min (50-200); Estimated Glomerular Filt Rate 86 ml/min (>60); GFR (African American) 104 ML/MIN (>60); Glucose 90 mg/dl (74-100); Potassium 3.4 mmoL/L (3.5-5.1); Sodium 139 mmol/L (136-145)
[2021-07-27 06:53] LABS: Lymphocytes % 10 % (10-50); Monocytes % 2 % (2-9); Neutrophils % 80 % (42-76); Platelet Estimate Normal; RBC Morphology Normal; Total Cells Counted 100
[2021-07-27 06:54] LABS: Hemoglobin 11.3 g/dL (12.2-16.2)
--- NOTE | 2021-07-27 09:20 | HMH.GSPN ---
Subjective Patient reports: no new complaints Progress Note: A&P (1) SBO (small bowel obstruction) Status: Acute Assessment and plan: Overall, doing well status post exploratory laparotomy with extensive lysis of adhesions and small bowel resection (x2). Mild tachycardia and low-grade fever likely secondary to atelectasis and volume status. Increase ambulation and incentive spirometer use Continue nasogastric decompression for now Continue Mota catheter for now secondary to intraoperative findings of severe adhesions encroaching bladder. Likely remove catheter tomorrow. (2) Constipation Problem details: improved on medical therapy Status: Acute Exam Vital signs and Labs for Last 24 Hours: Temp Pulse Resp BP Pulse Ox 99.3 F 106 H 16 157/91 H 98 07/27/21 08:00 07/27/21 08:00 07/27/21 08:00 07/27/21 08:00 07/27/21 08:00 Laboratory Results - last 24 hr 07/27/21 06:10: WBC 8.9 D, RBC 4.28, Hgb 11.3 L D, Hct 34.8 L, MCV 81.4, MCH 26.4 L, MCHC 32.4, RDW 14.7, Plt Count 213, MPV 8.2, Neut % (Auto) 85.0 H, Lymph % (Auto) 9.4 L, [place] % (Auto) 3.8, Eos % (Auto) 0.8, Baso % (Auto) 0.9, Neut # (Auto) 7.5, Lymph # (Auto) 0.8, [place] # (Auto) 0.3, Eos # (Auto) 0.1, Baso # (Auto) 0.1, Total Counted 100, Neutrophils % (Manual) 80 H, Band Neutrophils % 8.0, Lymphocytes % (Manual) 10, Monocytes % (Manual) 2, Platelet Estimate Normal, RBC Morphology Normal 07/27/21 06:10: Sodium 139, Potassium 3.4 L, Chloride 107, Carbon Dioxide 29, Anion Gap 6.4, BUN 10, Creatinine 0.70, Estimated Creat Clear 83, Estimated GFR 86, Est GFR ( Amer) 104, Glucose 90 D, Calcium 8.1 L I & O for Last 24 hours: Intake & Output 07/24/21 07/25/21 07/26/21 07/27/21 11:59 11:59 11:59 11:59 Intake Total 3629 / 3629 3334 / 3334 Output Total 500 / 500 2100 / 2100 Balance 3129 / 3129 1234 / 1234 Weight 129 lb 8 oz 133 lb 5 oz 132 lb 11.2 oz Microbiology Reports for the Last 24 Hours: Microbiology 07/25/21 01:22 Blood Blood Culture - Preliminary NO GROWTH AFTER 48 HOURS 07/25/21 01:22 Blood Blood Culture - Preliminary NO GROWTH AFTER 48 HOURS - Constitutional no acute distress - *Routine Respiratory Exam Absent: respiratory distress - *Routine Cardiovascular Exam Comments: Mildly tachycardic - *Routine Abdominal Exam Comments: Incision clean, dry, and intact. No erythema.
--- NOTE | 2021-07-27 13:03 | HMH.ACPN2 ---
Internal Medicine - PN: Shruthi *Date: 07/27/21 *Time: 13:03 Interval history: She is not complaining. States she was able to sleep. Exam Vital signs and Labs for Last 24 Hours: Temp Pulse Resp BP Pulse Ox 99.5 F 96 H 16 157/92 H 95 07/27/21 12:00 07/27/21 12:00 07/27/21 12:00 07/27/21 12:00 07/27/21 12:00 Laboratory Results - last 24 hr 07/27/21 06:10: WBC 8.9 D, RBC 4.28, Hgb 11.3 L D, Hct 34.8 L, MCV 81.4, MCH 26.4 L, MCHC 32.4, RDW 14.7, Plt Count 213, MPV 8.2, Neut % (Auto) 85.0 H, Lymph % (Auto) 9.4 L, [place] % (Auto) 3.8, Eos % (Auto) 0.8, Baso % (Auto) 0.9, Neut # (Auto) 7.5, Lymph # (Auto) 0.8, [place] # (Auto) 0.3, Eos # (Auto) 0.1, Baso # (Auto) 0.1, Total Counted 100, Neutrophils % (Manual) 80 H, Band Neutrophils % 8.0, Lymphocytes % (Manual) 10, Monocytes % (Manual) 2, Platelet Estimate Normal, RBC Morphology Normal 07/27/21 06:10: Sodium 139, Potassium 3.4 L, Chloride 107, Carbon Dioxide 29, Anion Gap 6.4, BUN 10, Creatinine 0.70, Estimated Creat Clear 83, Estimated GFR 86, Est GFR ( Amer) 104, Glucose 90 D, Calcium 8.1 L I & O for Last 24 hours: Intake & Output 07/25/21 07/26/21 07/27/21 07/28/21 11:59 11:59 11:59 11:59 Intake Total 3629 / 3629 3334 / 3334 Output Total 500 / 500 2100 / 2100 Balance 3129 / 3129 1234 / 1234 Weight 129 lb 8 oz 133 lb 5 oz 132 lb 11.2 oz Microbiology Reports for the Last 24 Hours: Microbiology 07/25/21 01:22 Blood Blood Culture - Preliminary NO GROWTH AFTER 48 HOURS 07/25/21 01:22 Blood Blood Culture - Preliminary NO GROWTH AFTER 48 HOURS - Constitutional no acute distress (drowsy this AM) - *Routine HEENT Exam Head: Present: normocephalic Eye: Present: EOMI, PERRL ENT: Present: mucous membranes moist - *Routine Neck Exam Present: supple. Absent: lymphadenopathy - *Routine Respiratory Exam Present: CTA bilaterally. Absent: rales, wheezes - *Routine Cardiovascular Exam Present: RRR - *Routine Abdominal Exam Present: tenderness (expected), wound (with ghazala, dry) - *Routine Extremities Exam Absent: cyanosis, clubbing, edema - *Routine Skin Exam Present: warm. Absent: rash - *Routine Neurological Exam Present: alert, oriented X3 Assessment and Plan (1) SBO (small bowel obstruction) Status: Acute Category: Medical Code(s): K56.609 - Unspecified intestinal obstruction, unspecified as to partial versus complete obstruction (2) Constipation Problem details: improved on medical therapy Status: Acute Qualifiers: Constipation type: unspecified constipation type Qualified Code(s): K59.00 - Constipation, unspecified Category: Medical Code(s): K59.00 - Constipation, unspecified - Assessment and plan all Dx Assessment and Plan for all problems:: continue present care.
--- NOTE | 2021-07-27 17:11 | PC.NURSE ---
PT IS RESTING IN BED. TOLERATED SITTING UP IN THE CHAIR FOR SEVERAL HOURS THIS AFTERNOON. PT AMBULATED IN THE GAVIN X2 THIS SHIFT. PT HAS BEEN USING INCENTIVE SPIROMETER. LUNG SOUNDS CLEAR. ABDOMEN SOFT/TENDER. MIDLINE INCISION OPEN TO AIR. DRESSING REMOVED THIS MORNING PER SURGEON. NG TUBE NOTED TO THE RT NARE CONNECTED TO CONTINUOUS LOW WALL SUCTION (100 ML'S DARK GREEN DRAINAGE NOTED). PT HAS ONLY USED 4 MG OF MORPHINE (PCP PUMP THIS SHIFT). WILL CONTINUE TO MONITOR.
[2021-07-28] VITALS: BP 148/89; PULSE 89; RESP 15; TEMP 37.4; O2SAT 98
[2021-07-28 03:35] VITALS: BP 140/86; PULSE 87; RESP 20; TEMP 37.1; O2SAT 99
--- NOTE | 2021-07-28 04:31 | PC.NURSE ---
Addendum entered by Conchita Penn RN 07/28/21 07:29: Cleared 1mg cleared from Morphine AIR REDUCTION EQUIPMENT OPERATOR pump Original Note: Patient has rested well this shift. Remains on RA with O2 sats 96-99%. Pt has voiced no c/o of N/V or pain thus far in shift. Midline incision is open to air ghazala present no s/s of infection. NG to right nare remains connected to low wall suction. Mota draining at bedside. Pt independently uses IS. Ambulated to chair and tolerated well at beginning of shift. Pt has had some ice chips this shift and tolerated well.
[2021-07-28 05:00] VITALS: BMI 22.7
[2021-07-28 06:21] LABS: Basophils # 0.1 K/mm3 (0-0.2); Basophils % 0.7 % (0.1-2.0); Eosinophils # 0.1 K/mm3 (0.0-0.4); Eosinophils % 1.7 % (0.1-12.0); Hematocrit 32.1 % (37.0-47.0); Hemoglobin 10.5 g/dL (12.2-16.2); Lymphocytes # 0.9 K/mm3 (0.7-4.5); Lymphocytes % 11.5 % (10-50); Mean Corpuscular HGB Conc 32.7 g/dL (31.8-35.4); Mean Corpuscular Hemoglobin 26.8 pg (27.0-31.2); Mean Corpuscular Volume 82.1 fl (81-99); Mean Platelet Volume 8.5 fl (7.4-10.4); Monocytes # 0.3 K/mm3 (0.1-1.0); Monocytes % 3.1 % (1.7-9.3); Neutrophils # 6.6 K/mm3 (1.8-7.8); Platelet Count 195 K/mm3 (142-424); Red Cell Distribution Width 14.6 % (11.5-17.5); White Blood Count 7.9 K/mm3 (4.8-10.8)
[2021-07-28 06:33] LABS: Anion Gap 4.6 mEq/L (5-15); Blood Urea Nitrogen 9 mg/dl (7-17); Calcium 7.9 mg/dl (8.4-10.2); Carbon Dioxide 29 mmol/L (22.0-30.0); Chloride 106 mmol/L (98-107); Creatinine Clearance Estimated 105 mL/min (50-200); Estimated Glomerular Filt Rate 102 ml/min (>60); GFR (African American) 124 ML/MIN (>60); Glucose 119 mg/dl (74-100); Potassium 3.6 mmoL/L (3.5-5.1); Sodium 136 mmol/L (136-145)
--- NOTE | 2021-07-28 07:13 | HMH.GSPN ---
Subjective Patient reports: no new complaints, no flatus, no bowel movement Progress Note: A&P (1) SBO (small bowel obstruction) Status: Acute Assessment and plan: Overall, doing fairly well status post exploratory laparotomy with extensive lysis of adhesions and small bowel resection (x2) Await return of bowel function Continue nasogastric decompression for now Remove Mota catheter Continue incentive spirometer/ambulation (2) Constipation Problem details: improved on medical therapy Status: Acute Exam Vital signs and Labs for Last 24 Hours: Temp Pulse Resp BP Pulse Ox 98.7 F 87 20 140/86 99 07/28/21 03:35 07/28/21 03:35 07/28/21 03:35 07/28/21 03:35 07/28/21 03:35 Laboratory Results - last 24 hr 07/28/21 06:00: WBC 7.9, RBC 3.90 L, Hgb 10.5 L, Hct 32.1 L, MCV 82.1, MCH 26.8 L, MCHC 32.7, RDW 14.6, Plt Count 195, MPV 8.5, Neut % (Auto) 83.0 H, Lymph % (Auto) 11.5, [place] % (Auto) 3.1, Eos % (Auto) 1.7, Baso % (Auto) 0.7, Neut # (Auto) 6.6, Lymph # (Auto) 0.9, [place] # (Auto) 0.3, Eos # (Auto) 0.1, Baso # (Auto) 0.1 07/28/21 06:00: Sodium 136, Potassium 3.6, Chloride 106, Carbon Dioxide 29, Anion Gap 4.6 L, BUN 9, Creatinine 0.60, Estimated Creat Clear 105, Estimated GFR 102, Est GFR ( Amer) 124, Glucose 119 H D, Calcium 7.9 L I & O for Last 24 hours: Intake & Output 07/25/21 07/26/21 07/27/21 07/28/21 11:59 11:59 11:59 11:59 Intake Total 3629 / 3629 3334 / 3334 2906 / 2906 Output Total 500 / 500 2100 / 2100 1200 / 1200 Balance 3129 / 3129 1234 / 1234 1706 / 1706 Weight 129 lb 8 oz 133 lb 5 oz 132 lb 11.2 oz 144 lb 14.4 oz - Constitutional no acute distress - *Routine Respiratory Exam Absent: respiratory distress - *Routine Cardiovascular Exam Absent: tachycardia - *Routine Abdominal Exam Comments: Incision clean, dry, and intact. No erythema.
[2021-07-28 08:00] VITALS: BP 132/82; PULSE 80; RESP 16; TEMP 36.8; O2SAT 98
--- NOTE | 2021-07-28 08:47 | HMH.ACPN2 ---
Internal Medicine - PN: Subj *Date: 07/28/21 *Time: 08:47 Interval history: Slept at intervals last night. Was up in a chair yesterday and did well. She is walked in the room. She denies chest pain or shortness of breath. She did sleep at intervals. She just had a Mota catheter removed. Bowels have not moved and she is not passing flatus. She has an NG tube to low wall suction. CBC shows a hemoglobin of 10.5 hematocrit of 32.1. Electrolytes are normal. BUN is 9 creatinine 0.6. Exam Vital signs and Labs for Last 24 Hours: Temp Pulse Resp BP Pulse Ox 98.7 F 87 20 140/86 99 07/28/21 03:35 07/28/21 03:35 07/28/21 03:35 07/28/21 03:35 07/28/21 03:35 Laboratory Results - last 24 hr 07/28/21 06:00: WBC 7.9, RBC 3.90 L, Hgb 10.5 L, Hct 32.1 L, MCV 82.1, MCH 26.8 L, MCHC 32.7, RDW 14.6, Plt Count 195, MPV 8.5, Neut % (Auto) 83.0 H, Lymph % (Auto) 11.5, [place] % (Auto) 3.1, Eos % (Auto) 1.7, Baso % (Auto) 0.7, Neut # (Auto) 6.6, Lymph # (Auto) 0.9, [place] # (Auto) 0.3, Eos # (Auto) 0.1, Baso # (Auto) 0.1 07/28/21 06:00: Sodium 136, Potassium 3.6, Chloride 106, Carbon Dioxide 29, Anion Gap 4.6 L, BUN 9, Creatinine 0.60, Estimated Creat Clear 105, Estimated GFR 102, Est GFR ( Amer) 124, Glucose 119 H D, Calcium 7.9 L I & O for Last 24 hours: Intake & Output 07/25/21 07/26/21 07/27/21 07/28/21 11:59 11:59 11:59 11:59 Intake Total 3629 / 3629 3334 / 3334 2906 / 2906 Output Total 500 / 500 2100 / 2100 1200 / 1200 Balance 3129 / 3129 1234 / 1234 1706 / 1706 Weight 129 lb 8 oz 133 lb 5 oz 132 lb 11.2 oz 144 lb 14.4 oz - Constitutional no acute distress (Appears comfortable) - *Routine Respiratory Exam Present: CTA bilaterally (Yearly and posteriorly) - *Routine Cardiovascular Exam Present: RRR - *Routine Abdominal Exam Present: soft, normoactive bowel sounds Comments: Wound with ghazala appears clean and dry - *Routine Extremities Exam Absent: edema, calf tenderness Assessment and Plan (1) SBO (small bowel obstruction) Status: Acute Category: Medical Code(s): K56.609 - Unspecified intestinal obstruction, unspecified as to partial versus complete obstruction (2) Constipation Problem details: improved on medical therapy Status: Acute Qualifiers: Constipation type: unspecified constipation type Qualified Code(s): K59.00 - Constipation, unspecified Category: Medical Code(s): K59.00 - Constipation, unspecified - Assessment and plan all Dx Assessment and Plan for all problems:: Continue with postop care. Incentive spirometer and out of bed.
--- NOTE | 2021-07-28 09:20 | P.PN_ITS ---
Internal Medicine - PN: Subj *Date: 07/28/21 *Time: 09:20 Exam Vital signs and Labs for Last 24 Hours: Temp Pulse Resp BP Pulse Ox 98.7 F 87 20 140/86 99 07/28/21 03:35 07/28/21 03:35 07/28/21 03:35 07/28/21 03:35 07/28/21 03:35 Laboratory Results - last 24 hr 07/28/21 06:00: WBC 7.9, RBC 3.90 L, Hgb 10.5 L, Hct 32.1 L, MCV 82.1, MCH 26.8 L, MCHC 32.7, RDW 14.6, Plt Count 195, MPV 8.5, Neut % (Auto) 83.0 H, Lymph % (Auto) 11.5, [place] % (Auto) 3.1, Eos % (Auto) 1.7, Baso % (Auto) 0.7, Neut # (Auto) 6.6, Lymph # (Auto) 0.9, [place] # (Auto) 0.3, Eos # (Auto) 0.1, Baso # (Auto) 0.1 07/28/21 06:00: Sodium 136, Potassium 3.6, Chloride 106, Carbon Dioxide 29, Anion Gap 4.6 L, BUN 9, Creatinine 0.60, Estimated Creat Clear 105, Estimated GFR 102, Est GFR ( Amer) 124, Glucose 119 H D, Calcium 7.9 L I & O for Last 24 hours: Intake & Output 07/25/21 07/26/21 07/27/21 07/28/21 23:59 23:59 23:59 23:59 Intake Total 1999 2807 / 2807 3389 / 3389 1673 / 1673 Output Total 1700 / 1700 1400 / 1999 700 / 700 Balance 1999 1107 / 1107 1989 / 1389 973 / 973 Weight 58.74 kg 60.47 kg 60.192 kg 65.726 kg Assessment and Plan (1) SBO (small bowel obstruction) Status: Acute Category: Medical Code(s): K56.609 - Unspecified intestinal obstruction, unspecified as to partial versus complete obstruction (2) Constipation Problem details: improved on medical therapy Status: Acute Qualifiers: Constipation type: unspecified constipation type Qualified Code(s): K59.00 - Constipation, unspecified Category: Medical Code(s): K59.00 - Constipation, unspecified The patient's infection will respond to the chosen ABx?: Yes Is the patient receiving the right drug, dose, and route?: Yes Could a more targeted ABx be ordered?: No
[2021-07-28 12:00] VITALS: BP 135/81; PULSE 80; RESP 16; O2SAT 98
[2021-07-28 16:00] VITALS: BP 147/86; PULSE 84; RESP 16; TEMP 36.4; O2SAT 97
[2021-07-28 20:00] VITALS: BP 153/88; PULSE 78; RESP 16; TEMP 36.9; O2SAT 97
[2021-07-29] VITALS: BP 150/84; PULSE 77; RESP 18; TEMP 36.7; O2SAT 100
[2021-07-29 04:00] VITALS: BP 143/90; PULSE 67; RESP 18; TEMP 36.6; O2SAT 100
--- NOTE | 2021-07-29 04:01 | PC.NURSE ---
Addendum entered by Jessy Sharp RN 07/29/21 07:06: 4mg of morphine cleared from MALE INFERTILITY SPECIALIST Original Note: No acute events have occurred thus far. Patient's midline incision remains open to air w/ no drainage. Patient's NG tube remains to continuous low wall suction with green gastric contents noted. Bowel sounds remain hypoactive. Patient has not had a bowel movement and does not report any flatulence.
[2021-07-29 05:00] VITALS: BMI 22.3
--- NOTE | 2021-07-29 06:49 | HMH.GSPN ---
Subjective Patient reports: no new complaints, no flatus Progress Note: A&P (1) SBO (small bowel obstruction) Status: Acute Assessment and plan: Overall, doing fairly well postoperative day 4 status post exploratory laparotomy with extensive lysis of adhesions and small bowel resection. Nasogastric tube to drain bag...check residuals every 4 hours. Continue incentive spirometer. Continue ambulation. (2) Constipation Problem details: improved on medical therapy Status: Acute Exam Vital signs and Labs for Last 24 Hours: Temp Pulse Resp BP Pulse Ox 97.9 F 67 18 143/90 H 100 07/29/21 04:00 07/29/21 04:00 07/29/21 04:00 07/29/21 04:00 07/29/21 04:00 I & O for Last 24 hours: Intake & Output 07/26/21 07/27/21 07/28/21 07/29/21 11:59 11:59 11:59 11:59 Intake Total 3629 / 3629 3334 / 3334 2906 / 2906 Output Total 500 / 500 2100 / 2100 1200 / 1200 Balance 3129 / 3129 1234 / 1234 1706 / 1706 Weight 133 lb 5 oz 132 lb 11.2 oz 144 lb 14.4 oz 142 lb 3.2 oz - Constitutional no acute distress - *Routine Respiratory Exam Absent: respiratory distress - *Routine Cardiovascular Exam Absent: tachycardia - *Routine Abdominal Exam Present: soft Comments: Incision clean, dry, and intact. No erythema.
[2021-07-29 08:00] VITALS: BP 137/81; PULSE 79; RESP 17; TEMP 36.6; O2SAT 99
--- NOTE | 2021-07-29 08:44 | HMH.ACPN2 ---
Internal Medicine - PN: Subj *Date: 07/29/21 *Time: 08:44 Interval history: Patient is doing okay today. She denies chest pain and shortness of breath. He remains n.p.o. with NG tube clamped. She has been seen by Dr. Angeles. She is ambulated and is now sitting in a chair. Exam Vital signs and Labs for Last 24 Hours: Temp Pulse Resp BP Pulse Ox 97.9 F 67 18 143/90 H 100 07/29/21 04:00 07/29/21 04:00 07/29/21 04:00 07/29/21 04:00 07/29/21 04:00 I & O for Last 24 hours: Intake & Output 07/26/21 07/27/21 07/28/21 07/29/21 11:59 11:59 11:59 11:59 Intake Total 3629 / 3629 3334 / 3334 2906 / 2906 2474 / 2474 Output Total 500 / 500 2100 / 2100 1200 / 1200 250 / 250 Balance 3129 / 3129 1234 / 1234 1706 / 1706 2224 / 2224 Weight 133 lb 5 oz 132 lb 11.2 oz 144 lb 14.4 oz 142 lb 3.2 oz - Constitutional no acute distress Comments: Sitting up in a chair at bedside. Appears comfortable at present - *Routine Respiratory Exam Present: CTA bilaterally (Anteriorly and posteriorly) - *Routine Cardiovascular Exam Present: RRR - *Routine Abdominal Exam Present: soft, normoactive bowel sounds (Can hear bowel sounds today.), tenderness (Postoperative). Absent: distended - *Routine Extremities Exam Absent: edema, calf tenderness - *Routine Neurological Exam Present: alert, oriented X3 Assessment and Plan (1) SBO (small bowel obstruction) Status: Acute Category: Medical Code(s): K56.609 - Unspecified intestinal obstruction, unspecified as to partial versus complete obstruction (2) Constipation Problem details: improved on medical therapy Status: Acute Qualifiers: Constipation type: unspecified constipation type Qualified Code(s): K59.00 - Constipation, unspecified Category: Medical Code(s): K59.00 - Constipation, unspecified - Assessment and plan all Dx Assessment and Plan for all problems:: Continue postop care. Encouraged ambulation and out of bed activity. Continue pulmonary hygiene
[2021-07-29 12:00] VITALS: BP 144/83; PULSE 75; RESP 18; TEMP 36.7; O2SAT 100
--- NOTE | 2021-07-29 14:18 | PC.NURSE ---
Pt is alert and oriented x4. Abdomen is soft and tender. Bowel sounds hypoactive x4. No BM or flatus as of yet. Midline incision is open to air. No drainage or erythema noted. She accidentally pulled her NG out this am. Dr Angeles notified. Pt has denied any nausea or vomiting since. She has ambulated to the bathroom with standby assist and has ambulated in the halls. She's been up to the chair intermittently. She is currently resting in bed with her eyes closed. Bed is locked and in the lowest position, call light within reach.
[2021-07-29 16:00] VITALS: BP 136/88; PULSE 67; RESP 18; TEMP 36.4; O2SAT 98
--- NOTE | 2021-07-29 18:00 | PC.NURSE ---
WALKED PT IN GAVIN. 2 LAPS, PT TOLERATED WELL.
[2021-07-29 20:00] VITALS: BP 136/77; PULSE 69; RESP 16; TEMP 36.8; O2SAT 100
[2021-07-30] VITALS: BP 147/87; PULSE 68; RESP 14; TEMP 36.7; O2SAT 96
[2021-07-30 04:00] VITALS: BP 143/80; PULSE 68; RESP 18; TEMP 36.6; O2SAT 100
[2021-07-30 04:37] VITALS: BMI 22.4
--- NOTE | 2021-07-30 07:03 | PC.NURSE ---
Pt rested well t/o night. Pt ambulates independently to bathroom. Pt voiced no c/o of pain t/o the night. Midline incision is open to air, ghazala present, no s/s of infection. Pt reports passing little gas t/o the night. Pt tolerated ice chips.
--- NOTE | 2021-07-30 07:10 | PC.NURSE ---
1mg of morphine cleared from CONTENT PRODUCTION SPECIALIST pump
--- NOTE | 2021-07-30 07:52 | HMH.GSPN ---
Subjective Patient reports: no new complaints (No nausea or emesis after removal of nasogastric tube.), flatus (She describes at least 1 or 2 episodes of small gas ) Progress Note: A&P (1) SBO (small bowel obstruction) Status: Acute Assessment and plan: Overall, doing very well status post exploratory laparotomy with extensive lysis of adhesions and small bowel resection (x2) Cautious clear liquids (no tray) Continue to increase ambulation and incentive spirometer use (2) Constipation Problem details: improved on medical therapy Status: Acute Exam Vital signs and Labs for Last 24 Hours: Temp Pulse Resp BP Pulse Ox 97.9 F 68 18 143/80 H 100 07/30/21 04:00 07/30/21 04:00 07/30/21 04:00 07/30/21 04:00 07/30/21 04:00 I & O for Last 24 hours: Intake & Output 07/27/21 07/28/21 07/29/21 07/30/21 11:59 11:59 11:59 11:59 Intake Total 3334 / 3334 2906 / 2906 2474 / 2474 2408 / 2408 Output Total 2100 / 2100 1200 / 1200 250 / 250 Balance 1234 / 1234 1706 / 1706 2224 / 2224 2408 / 2408 Weight 132 lb 11.2 oz 144 lb 14.4 oz 142 lb 3.2 oz 142 lb 14.4 oz Microbiology Reports for the Last 24 Hours: Microbiology 07/25/21 01:22 Blood Blood Culture - Final NO GROWTH AFTER 5 DAYS 07/25/21 01:22 Blood Blood Culture - Final NO GROWTH AFTER 5 DAYS - Constitutional no acute distress - *Routine Respiratory Exam Absent: respiratory distress - *Routine Cardiovascular Exam Absent: tachycardia - *Routine Abdominal Exam Present: soft. Absent: distended Comments: Incision healing without sign of infection.
[2021-07-30 08:00] VITALS: BP 162/88; PULSE 67; RESP 20; TEMP 36.9; O2SAT 96
--- NOTE | 2021-07-30 08:19 | HMH.ACPN2 ---
Internal Medicine - PN: Subj *Date: 07/30/21 *Time: 08:19 Interval history: Accidentally has pulled out NG tube. Has done well without it. She did sleep last night. She continues to use pain pump. She increased her ambulation yesterday and uses the incentive spirometer. She has been seen by Dr. Gutierrez this morning and started on clear liquids cautiously. She does have some nausea. She is passing flatus and thought she had a small stool. She is voiding QS. Exam Vital signs and Labs for Last 24 Hours: Temp Pulse Resp BP Pulse Ox 97.9 F 68 18 143/80 H 100 07/30/21 04:00 07/30/21 04:00 07/30/21 04:00 07/30/21 04:00 07/30/21 04:00 I & O for Last 24 hours: Intake & Output 07/27/21 07/28/21 07/29/21 07/30/21 11:59 11:59 11:59 11:59 Intake Total 3334 / 3334 2906 / 2906 2474 / 2474 2408 / 2408 Output Total 2100 / 2100 1200 / 1200 250 / 250 Balance 1234 / 1234 1706 / 1706 2224 / 2224 2408 / 2408 Weight 132 lb 11.2 oz 144 lb 14.4 oz 142 lb 3.2 oz 142 lb 14.4 oz Microbiology Reports for the Last 24 Hours: Microbiology 07/25/21 01:22 Blood Blood Culture - Final NO GROWTH AFTER 5 DAYS 07/25/21 01:22 Blood Blood Culture - Final NO GROWTH AFTER 5 DAYS - Constitutional no acute distress, thin Comments: Appears comfortable lying in bed. - *Routine Respiratory Exam Present: CTA bilaterally (Anteriorly and posteriorly) - *Routine Cardiovascular Exam Present: RRR - *Routine Abdominal Exam Present: soft, normoactive bowel sounds (I hear good bowel sounds today.), tenderness (Normal postoperative tenderness.), wound (Surgical wound with ghazala appears clean and dry without erythema). Absent: distended - *Routine Extremities Exam Absent: edema, calf tenderness - *Routine Neurological Exam Present: alert, oriented X3 Assessment and Plan (1) SBO (small bowel obstruction) Status: Acute Category: Medical Code(s): K56.609 - Unspecified intestinal obstruction, unspecified as to partial versus complete obstruction (2) Constipation Problem details: improved on medical therapy Status: Acute Qualifiers: Constipation type: unspecified constipation type Qualified Code(s): K59.00 - Constipation, unspecified Category: Medical Code(s): K59.00 - Constipation, unspecified - Assessment and plan all Dx Assessment and Plan for all problems:: Continue with postoperative routine. We will start clear liquids cautiously today. Ambulation encouraged. Continue with pulmonary hygiene.
[2021-07-30 12:00] VITALS: BP 148/91; PULSE 65; RESP 20; TEMP 36.6; O2SAT 99
--- NOTE | 2021-07-30 12:51 | PC.NURSE ---
Addendum entered by Dimple Olvera RN 07/30/21 15:56: 1 MG OF MORPHINE CLEARED FROM PCP PUMP THIS SHIFT. PT STATED SHE HAD A SMALL FORMED BOWEL MOVEMENT. TOLERATING SIPS OF CLEARS. Original Note: PT IS SITTING UP IN THE CHAIR. AMBULATED IN THE GAVIN WITH A STANDBY ASSIST. PT STATES SHE HAS BEEN PASSING FLATUS. ABDOMINAL INCISION OPEN TO AIR. ABDOMEN SOFT/TENDER WITH HYPOACTIVE BOWEL SOUNDS. PT CONTINUES TO USE INCENTIVE SPIROMETER. WILL CONTINUE TO MONITOR.
[2021-07-30 16:00] VITALS: BP 149/77; PULSE 66; RESP 18; TEMP 37.1; O2SAT 92
[2021-07-30 20:00] VITALS: BP 150/84; PULSE 70; RESP 14; TEMP 37.6; O2SAT 99
[2021-07-31] VITALS: BP 144/84; PULSE 73; RESP 16; TEMP 37.1; O2SAT 100
[2021-07-31 04:00] VITALS: BP 153/85; PULSE 64; RESP 16; TEMP 37; O2SAT 98
[2021-07-31 05:00] VITALS: BMI 22.3
--- NOTE | 2021-07-31 06:31 | P.PN_ITS ---
Subjective Patient reports: no new complaints, feels better, flatus, bowel movement Progress Note: A&P (1) SBO (small bowel obstruction) Status: Acute Assessment and plan: Overall, doing well status post exploratory laparotomy with extensive lysis of adhesions and small bowel resection (x2) Clear liquid diet ordered IV fluids decreased PO pain medication ordered (NITROCELLULOSE MAKER discontinued) Antibiotics discontinued Remove one half of ghazala (2) Constipation Problem details: improved on medical therapy Status: Acute Exam Vital signs and Labs for Last 24 Hours: Temp Pulse Resp BP Pulse Ox 98.6 F 64 16 153/85 H 98 07/31/21 04:00 07/31/21 04:00 07/31/21 04:00 07/31/21 04:00 07/31/21 04:00 I & O for Last 24 hours: Intake & Output 07/28/21 07/29/21 07/30/21 07/31/21 11:59 11:59 11:59 11:59 Intake Total 2906 / 2906 2474 / 2474 2408 / 2408 2245 / 2245 Output Total 1200 / 1200 250 / 250 0 / 0 Balance 1706 / 1706 2224 / 2224 2408 / 2408 2245 / 2245 Weight 144 lb 14.4 oz 142 lb 3.2 oz 142 lb 14.4 oz 142 lb 3.2 oz - Constitutional no acute distress - *Routine Respiratory Exam Absent: respiratory distress - *Routine Cardiovascular Exam Absent: tachycardia - *Routine Abdominal Exam Present: soft Comments: Incision clean, dry, and intact. No erythema.
--- NOTE | 2021-07-31 07:07 | PC.NURSE ---
Pt rested intermittently t/o shift. Cleared 1mg of morphine from GARAGE DOOR TECHNICIAN pump. Middle incision is open to air ghazala present. Pt had no c/o of pain, N/V. Pt can ambulate to bathroom independently. Has been using IS t/o the night.
[2021-07-31 08:00] VITALS: BP 159/63; PULSE 66; RESP 16; TEMP 37; O2SAT 100
--- NOTE | 2021-07-31 08:43 | HMH.ACPN2 ---
Internal Medicine - PN: Subj *Date: 07/31/21 *Time: 08:43 Interval history: Patient is feeling well this morning. She states her pain is controlled. She has been passing gas and having bowel movements and has been up walking around her room. She is drinking liquids this morning. She is anxious to go home. Exam Vital signs and Labs for Last 24 Hours: Temp Pulse Resp BP Pulse Ox 98.6 F 64 16 153/85 H 98 07/31/21 04:00 07/31/21 04:00 07/31/21 04:00 07/31/21 04:00 07/31/21 04:00 I & O for Last 24 hours: Intake & Output 07/28/21 07/29/21 07/30/21 07/31/21 11:59 11:59 11:59 11:59 Intake Total 2906 / 2906 2474 / 2474 2408 / 2408 2795 / 2795 Output Total 1200 / 1200 250 / 250 0 / 0 Balance 1706 / 1706 2224 / 2224 2408 / 2408 2795 / 2795 Weight 144 lb 14.4 oz 142 lb 3.2 oz 142 lb 14.4 oz 142 lb 3.2 oz - Constitutional no acute distress - *Routine Respiratory Exam Present: CTA bilaterally - *Routine Cardiovascular Exam Present: RRR - *Routine Abdominal Exam Present: soft, normoactive bowel sounds, tenderness (Around incision sites) - *Routine Extremities Exam Absent: cyanosis, clubbing, edema - *Routine Skin Exam Present: warm. Absent: rash - *Routine Neurological Exam Present: alert, oriented X3 Assessment and Plan (1) SBO (small bowel obstruction) Status: Acute Category: Medical Code(s): K56.609 - Unspecified intestinal obstruction, unspecified as to partial versus complete obstruction (2) Constipation Problem details: improved on medical therapy Status: Acute Qualifiers: Constipation type: unspecified constipation type Qualified Code(s): K59.00 - Constipation, unspecified Category: Medical Code(s): K59.00 - Constipation, unspecified - Assessment and plan all Dx Assessment and Plan for all problems:: Patient is doing well. Dr. Angeles has seen the patient this morning and wants half of the ghazala removed. He has started a clear liquid diet and decreased IV fluids.
--- NOTE | 2021-07-31 12:45 | DIET.NUTRFU ---
RD saw patient today to review GI soft diet to follow upon discharge, handout provided. Currently tolerating clear liquids. No other nutritional concerns at this time.
--- NOTE | 2021-07-31 14:14 | HMH.PHAINT ---
DISCHARGE MEDICATION COUNSELING PROVIDED. DISCUSSED SHORT-COURSE TRAMADOL PRESCRIPTION. DISCUSSED PRN NATURE AND WHAT TO EXPECT (MAY CAUSE SEDATION, DO NOT DRIVE, NAUSEA POSSIBLE, CAN TAKE WITH FOOD, CONSTIPATION POSSIBLE). PATIENT ENDORSED NO QUESTIONS AT THIS TIME.
--- NOTE | 2021-07-31 14:30 | PC.NURSE ---
PT IS ANXIOUS TO GO HOME. EVERY OTHER STAPLE WAS REMOVED FROM MIDLINE INCISION THIS SHIFT. STERI STRIPS IN PLACE. PT TOLERATED TAKING A SHOWER THIS SHIFT. AMBULATED IN THE GAVIN. TOLERATING CLEAR LIQUIDS. WHEN PT IS DISCHARGED SHE WILL NEED TO FOLLOW A FULL LIQUID DIET FOR A FEW DAYS AND THEN CAN ADVANCE TO A SOFT DIET. PT WILL FOLLOW UP WITH 08/06.
--- NOTE | 2021-08-01 08:50 | HMH.DCSUM ---
General - General Admission date:: 07/25/21 Discharge date: 07/31/21 HPI HPI: Ms. Cantu is a 60-year-old female with a history of arthritis. She began having periumbilical abdominal pain on at around 4:30 AM while she was at work. She went home and laid down and the pain continued to worsen. At 12 AM last night she decided to come to the emergency room. This pain was similar to pain she had 10 to 15 years ago when she had a small bowel obstruction. She states at that time, it resolved on its own and she has had no problems since. She does have a history of constipation and usually only has bowel movements on the weekends. She states she did have a small bowel movement yesterday. She vomited yesterday but has had no vomiting or nausea today. Her pain has improved. Hospital Course Hospital Course: The patient was admitted and surgery was consulted. Her CT showed a high-grade small bowel obstruction, likely due to adhesions. Dr. Angeles ordered a small bowel follow-through and serial abdominal exams. He ended up taking her to the OR on 07/25/2021 for an exploratory laparotomy, extensive lysis of adhesions, and a partial small bowel resection. The patient tolerated the procedure well. Her pain was controlled and she was able to ambulate. She was initially started on ice chips and an NG tube was continued for decompression. Her Mota was continued as well due to extensive adhesions projecting to the margin of the bladder. She did have some mild tachycardia and a low-grade fever. Dr. Angeles felt this was likely secondary to atelectasis and volume status. He encouraged the use of an incentive spirometer. She was able to begin sleeping. Her Mota was able to be removed as was her NG tube. She began passing some gas. Her diet was increased to clear liquids. Her FORENSICS ANALYST pump was discontinued and she was started on p.o. pain medication. She began having bowel movements and was anxious to be discharged home. She was stable to discharge on 07/31/2021 and will follow up with Dr. Angeles as well as Dr. Diggs. Objective Vital signs: Temp Pulse Resp BP Pulse Ox 98.6 F 66 16 159/63 H 100 07/31/21 08:00 07/31/21 08:00 07/31/21 08:00 07/31/21 08:00 07/31/21 08:00 Narrative: - Constitutional no acute distress - *Routine HEENT Exam Head: Present: normocephalic Eye: Present: EOMI, PERRL ENT: Present: mucous membranes moist - *Routine Neck Exam Present: supple. Absent: lymphadenopathy - *Routine Respiratory Exam Present: CTA bilaterally - *Routine Cardiovascular Exam Present: RRR - *Routine Abdominal Exam Present: soft, normoactive bowel sounds, tenderness (periumbilical area and some in the epigastric area) - *Routine Rectal Exam Rectal:: normal sphincter tone Comments:: soft brown stool in rectum - *Routine Genitalia Exam Genitalia:: deferred - *Routine Extremities Exam Absent: cyanosis, clubbing, edema - *Routine Skin Exam Present: warm. Absent: rash - *Routine Neurological Exam Present: alert, oriented X3 DS: Diagnosis - Discharge Diagnosis (1) SBO (small bowel obstruction) Status: Acute (2) Constipation Status: Acute Problem details: improved on medical therapy Discharge Plan - Patient Discharge Instructions Patient Instructions: Small Bowel Obstruction, DI for Small Bowel Obstruction, Catheter-associated Urinary Tract Infection - Follow up Plan Follow up with: Kenji Diggs MD [Primary Care Provider] - 08/04/21 2:30 pm Román Angeles MD [Staff Physician] - 08/06/21 9:30 am Unknown provider or service follow up:: 07/31/21 13:50 Dr. Mitul Angeles, call for appt. Disposition: Home, Self-Care Condition at discharge:: Improved Home Medications: Home Medications Medication Instructions Recorded Confirmed Type Celecoxib 200 mg PO DAILY #30 cap 06/01/20 07/25/21 Rx PARoxetine HCL [Paxil 20mg Tablet] 20 mg PO DAILY 07/25/21 07/25/21 History Tram
--- NOTE | 2021-08-01 15:07 | CARE MANAGER ---
Contacted patient related to discharge from the hospital. She states she has been feeling much better. She is aware of appointments and denies questions or concerns.
== END 2021-07-31 14:54 | disposition home or self-care (01) | DRG 330 ==
LOC: ER 03:47 → 2ND 10:40
PROVIDERS: Surgery; Admitting Provider Family Medicine; Emergency Provider Emergency Medicine; PCP Family Medicine; Visit Provider Family Medicine
PROC: 0DB80ZZ Excision of Small Intestine, Open Approach (ICD-10-PCS; CPT 49000; principal; 2021-07-25 11:30)
DX: K56.51 Intestinal adhesions [bands], with partial obstruction (principal); J98.11 Atelectasis; Z20.822 Contact with and (suspected) exposure to COVID-19; M19.90 Unspecified osteoarthritis, unspecified site
CPT/HCPCS: 44120; 44005; 36415; 74177; 74250; 80048; 80053; 81001; 82150; 83605; 83690; 84484; 85007; 85025; 85651; 86140; 87040; 93005; 96375; 99285; C9803; J0131; J0330; J2405; J2543; J2710; Q9967; U0003; U0005

== ENCOUNTER → 2022-02-25 10:53 | Outpatient (CLI) | payer BC, SELFPAY ==
--- NOTE | 2022-02-25 10:55 | MM_ITS ---
PROCEDURE INFORMATION: Exam: MG Bilateral Screening 3D Mammography Exam date and time: 02/25/2022 10:47 AM Age: 61 years old Clinical indication: Screening examination TECHNIQUE: Imaging protocol: Bilateral Screening tomosynthesis and 2D mammography including computer-aided detection (CAD) when performed. COMPARISON: 1. MG MM DIG SCREENING MAMM BI W/CAD 07/24/2020 8:59 AM 2. MG DMSB DIG MAMM-SCREEN EDUARDO 09/11/2013 4:18 PM FINDINGS: MAMMOGRAPHY: Breast composition: There are scattered areas of fibroglandular density. Mass: None. Architectural distortion: None. Calcifications: No suspicious calcifications. Asymmetric density: None. Skin thickening: None. Axillary adenopathy: None. IMPRESSION: No mammographic evidence of malignancy. Annual screening is recommended unless otherwise clinically indicated. ASSESSMENT: BI-RADS Category 1: Negative
== END ==
PROVIDERS: PCP Family Medicine; Visit Provider Family Medicine
DX: Z12.31 Encounter for screening mammogram for malignant neoplasm of breast (principal)
CPT/HCPCS: 77063; 77067

== ENCOUNTER → 2022-07-21 14:37 | Outpatient (CLI) | payer BC, SELFPAY ==
--- NOTE | 2022-07-21 14:41 | XR_ITS ---
FINAL REPORT CLINICAL HISTORY: CYST OF RT WRIST, pain @ ulnar side FINDINGS: RIGHT WRIST Three views demonstrate no acute fracture or dislocation. There is significant soft tissue swelling medial to the distal ulna which may represent a mass or localized soft tissue swelling. Mild degenerative changes are seen. IMPRESSION: Significant soft tissue swelling medial to the distal ulna may represent a mass or localized soft tissue swelling. MRI could further evaluate. Reviewed, Interpreted and Dictated by Keny Lawrence III, MD Transcribed by Irene Wallace Authenticated and . [facility]
== END ==
PROVIDERS: PCP Family Medicine; Visit Provider Nurse Practitioner Family
DX: M67.431 Ganglion, right wrist (principal)
CPT/HCPCS: 73110

== ENCOUNTER → 2022-08-12 09:50 | Outpatient (CLI) | payer BC, SELFPAY ==
--- NOTE | 2022-08-12 09:50 | MR_ITS ---
FINAL REPORT CLINICAL HISTORY: Right wrist pain, palpable area on ulnar side. swelling COMPARISON: None FINDINGS: Multiplanar MR imaging of the right wrist was performed without contrast. Mild degenerative changes noted. There is bone marrow edema in the distal ulna, medial distal radius, proximal lunate, and proximal hamate. There are several small cysts in the carpal bones. There is a high-grade tear of the ulnar attachment to the triangular fibrocartilage. There is a large amount of abnormal soft tissue in the distal radial ulnar joint and surrounding the distal ulna of uncertain etiology but most worrisome for synovitis. There is dorsal subluxation of the ulna at the distal radial ulnar joint. There is extensor digitorum synovitis. Moderate radiocarpal joint effusion. There is an 8 mm cyst adjacent to the volar radial aspect of the radiocarpal joint, likely ganglion cyst. IMPRESSION: High-grade tear at the ulnar attachment. Abnormal soft tissue surrounding the distal ulna worrisome for synovitis. Reviewed, Interpreted and Dictated by Keny Lawrence III, MD Transcribed by Dorcas Ash Authenticated and [facility]
== END ==
PROVIDERS: PCP Family Medicine; Visit Provider Orthopaedic Surgery
DX: M25.531 Pain in right wrist (principal)
CPT/HCPCS: 73221

== ENCOUNTER → 2023-03-26 07:54 | Outpatient (CLI) | payer BC, SELFPAY ==
--- NOTE | 2023-03-26 08:04 | MM_ITS ---
PROCEDURE INFORMATION: Exam: MG Bilateral Screening 3D Mammography Exam date and time: 03/26/2023 7:55 AM Age: 62 years old Clinical indication: Screening examination TECHNIQUE: Imaging protocol: Bilateral Screening tomosynthesis and 2D mammography including computer-aided detection (CAD) when performed. COMPARISON: 1. MG MM DIG SCREENING MAMM BI W/CAD 02/25/2022 10:47 AM 2. MG MM DIG SCREENING MAMM BI W/CAD 07/24/2020 8:59 AM FINDINGS: MAMMOGRAPHY: Breast composition: There are scattered areas of fibroglandular density. Mass: None. Architectural distortion: None. Calcifications: No suspicious calcifications. Asymmetric density: None. Skin thickening: None. Axillary adenopathy: None. IMPRESSION: No mammographic evidence of malignancy. Annual screening is recommended unless otherwise clinically indicated. ASSESSMENT: BI-RADS Category 1: Negative
--- NOTE | 2023-03-26 08:15 | XR_ITS ---
FINAL REPORT CLINICAL HISTORY: POSTMENOPAUSAL Osteoporosis screening COMPARISON: 07/24/2020 FINDINGS: Using L1-4, the bone mineral density of the spine is 1.132 g/cm2, corresponding to T-score of 0.8, within normal limits. Previously 1.165 g/cm? with T-score of 1.1. Using the left hip, the bone mineral density of the femoral neck is 0.871 g/cm2, corresponding to a T-score of -0.6, within normal limits. Previously 0.739 g/cm? with T-score of -1.0. Using the right hip, the bone mineral density of the femoral neck is 0.742 g/cm2, corresponding to a T-score of -1.0, within normal limits. Previously 0.874 g/cm? with T-score of -0.6. FRAX not reported because all T-scores at or above -1.0. NOTE: T-score: Standard deviation compared with peak bone mass of young adult mean. *Following the recommendations of the International Society of Bone densitometry, classification of hip BMD is based on the lower of two T-scores; total hip or femoral neck. IMPRESSION: Normal bone mineral density of the lumbar spine and hips. Reviewed, Interpreted and Dictated by Jay Cochran MD Transcribed by Dorcas Ash Authenticated and [facility]
== END ==
LOC: RAD 07:55
PROVIDERS: PCP Family Medicine; Visit Provider Family Medicine
DX: Z12.31 Encounter for screening mammogram for malignant neoplasm of breast (principal); Z78.0 Asymptomatic menopausal state
CPT/HCPCS: 77063; 77067; 77080

== ENCOUNTER 2023-11-15 04:45 | Emergency (ER) | payer BC, SELFPAY ==
[2023-11-15 04:47] VITALS: BP 141/84; PULSE 54; RESP 20; TEMP 36.6; O2SAT 100; BMI 20.3
[2023-11-15 04:56] LABS: Coronavirus 19, PCR Not Detected (NotDetected); Influenza A, PCR Not Detected (NotDetected); Influenza B, PCR Not Detected (NotDetected)
--- NOTE | 2023-11-15 04:58 | ED_ITS ---
Discharge Plan Disposition Patient Disposition: Home, Self-Care Condition: Good Prescriptions Prescriptions: No Action paroxetine HCl 20 MG tablet 20 mg PO DAILY tramadol 50 MG tablet 50 mg PO QIDP PRN (Reason: Moderate Pain) Qty: 20 1RF celecoxib 200 MG capsule 200 mg PO DAILY Qty: 30 1RF Rx Instructions: Take one capsule daily with food Referrals Follow up/Referrals: Salvador Zamora MD [Primary Care Provider] - See instructions Activity Restrictions/Add. Instructions Additional Instructions/Restrictions: You were evaluated in the ER and are appropriate for discharge at this time. Follow-up the results of the COVID/flu test in the patient portal. If for any r farzaneh you are unable to access the patient portal, call the ER for your results. Make an appointment with your primary care physician for reevaluation in a few days. Return to the ER with new, worsening, or otherwise concerning symptoms. Clinical Impressions Clinical Impression: Nasal congestion Print Language Print Language: [place] Discharge ED Provider: Jenna Quinteros General Adult HPI General Chief complaint: Upper Respiratory Infection Stated complaint: congestion, runny nose Time Seen by Provider: 11/15/23 04:55 History of Present Illness HPI narrative: 62-year-old female with a history of prior small bowel obstruction presents to the ER for complaint of congestion, runny nose. Patient reports she wants to make sure she does not have COVID prior to going to work. She states she also has family she would like to protect. She states she has not had fevers, chills, chest pain, difficulty breathing, cough, nausea, vomiting, diarrhea, abdominal pain, or any other associated symptoms. Patient does request to receive a Tdap booster. She states she does not recall the last time she had 1 in approximately 1 week ago at work struck her right forearm on a nail. She has a well-healing wound without pain at the site but is concerned she should have a tetanus booster. Related Data Home Medications ?Medication ?Instructions ?Recorded ?Confirmed paroxetine HCl 20 mg tablet 20 mg PO DAILY Anxiety 07/25/21 08/28/22 Previous Rx's ?Medication ?Instructions ?Recorded celecoxib 200 mg capsule 200 mg PO DAILY #30 caps 06/01/20 tramadol 50 mg tablet 50 mg PO QIDP PRN Moderate Pain 07/31/21 #20 tabs Allergies Allergy/AdvReac Type Severity Reaction Status Date / Time No Known Allergies Allergy Verified 08/28/22 15:28 [facility] Disclaimer: The information contained in this section may have been updated after the patient was seen, as this information can be updated by other users. Social History Smoking Status: Never smoker alcohol intake: never substance use type: denies use current occupational status: employed Travel in the last 8 weeks: None household members: children housing: house ROS Obtained: Yes All systems reviewed & no additional complaints except as documented Positive ROS per HPI Physical Exam General General appearance: alert and in no apparent distress Head Head exam: atraumatic and normocephalic Eye Eye exam: Present PERRL and EOMI ENT ENT exam: Present mucous membranes moist Neck Neck exam: Present normal inspection and full ROM Chest Chest inspection: Present symmetric chest wall rise Respiratory Respiratory exam: Present normal lung sounds bilaterally; Absent respiratory distress, wheezes or stridor Cardiovascular Cardiovascular exam: Present regular rate and normal rhythm Abdominal Exam Abdominal exam: Present soft; Absent distention or tenderness Extremities Exam Extremities exam: Present full ROM Neurological Exam Neurological exam: Present alert and oriented X3; Absent motor sensory deficit Psychiatric Psychiatric exam: Present normal affect and normal mood Skin Skin exam: Present warm, dry and other (Well-healing 5 mm puncture wound on the right forearm. Has clean granulation tissue, no surrounding induration, no fluctuance, no purulence. No signs of infection.) Medical Decision Making Ang Inquiry Pt receiving controlled substance: No Vital Signs: 11/15/23 04:47 Temperature 98 F Temperature Source Oral Pulse Rate [Right] 54 L Respiratory Rate 20 Blood Pressure [Right Arm] 141/84 H Blood Pressure Mean [Right Arm] 103 Blood Pressure Source [Right Arm] Automatic Cuff Blood Pressure Position [Right Arm] Sitting 02 Sat by Pulse Oximetry 100 Oxygen Delivery Method Room Air Orders (Tests/Meds): ED MEDICATIONS Discontinued Medications Generic Name Dose Route Start Last Admin Trade Name Freq PRN Reason Stop Dose Admin Tetanus/Reduced Diphtheria/Acell Pertussis 0.5 ml 11/15/23 04:58 Tet/Diphth/Pert-Adult 0.5ml Syringe IM 11/15/23 04:59 .ONCE ONE ORDERS Category Date Time Status Rapid PCR Covid and Flu A/B Stat Lab 11/15/23 04:53 Ordered Medical Decision Narrative: 62-year-old female presents to the ER for complaints of congestion, runny nose requesting a COVID test and his booster due to wound on her right forearm. On initial evaluation patient is hemodynamically stable, afebrile, cardiopulmonary exam benign examination of the wound does not demonstrate any findings of infection and it is well-healing. I did consider on my differential COVID, flu, other viral syndrome, cellulitis, abscess. I do not appreciate findings of cellulitis or abscess at the well-healing wound. Since she has not had a Tdap booster and any recent memory, this will be administered today. COVID/flu test ordered. I do not believe other labs or imaging are necessary. I have very low suspicion for flu and patient does not have any high risk medical history for developing severe COVID and has only extremely mild COVID symptoms so she would not be an appropriate patient for Paxlovid even if she was positive. Patient was given instructions on accessing the patient portal and is comfortable discharging prior to the results of her COVID test. Patient was given instructions on symptomatic management, follow up instructions, and return precautions for the emergency department. Patient indicated understanding and was discharged in stable condition. Critical Care Critical Care Time Critical Care Time: No
[2023-11-15 05:08] VITALS: BP 143/85; PULSE 54; RESP 16; TEMP 36.8; O2SAT 99
[2023-11-15] MEDS: TET/DIPHTH/PERT-ADULT 0.5ML SYRINGE 0.5 ML IM (05:13)
== END 2023-11-15 05:14 | disposition home or self-care (01) ==
PROVIDERS: Emergency Provider Emergency Medicine; PCP Family Medicine
DX: R09.81 Nasal congestion (principal); Z23 Encounter for immunization
CPT/HCPCS: 87636; 90471; 90715; 99283

== ENCOUNTER 2023-12-24 00:42 | Emergency (ER) | payer BC, SELFPAY ==
[2023-12-24 00:51] VITALS: BP 134/62; PULSE 77; RESP 17; TEMP 36.6; O2SAT 99; BMI 20.2
--- NOTE | 2023-12-24 00:54 | XR_ITS ---
PROCEDURE INFORMATION: Exam: XR Left Wrist Exam date and time: 12/24/2023 12:53 AM Age: 63 years old Clinical indication: Pain; Wrist; Left; Additional info: Pain, swelling, HX ra, recent fall TECHNIQUE: Imaging protocol: Radiologic exam of the left wrist. Views: 1 or 2 views. COMPARISON: No relevant prior studies available. FINDINGS: Bones/joints: No fracture. No dislocation. Degenerative changes of scaphoid multangular joint. Normal bony density. Soft tissues: Normal. IMPRESSION: No acute findings.
--- NOTE | 2023-12-24 00:55 | ED_ITS ---
Discharge Plan Disposition Patient Disposition: Home, Self-Care Prescriptions Prescriptions: No Action paroxetine HCl 20 MG tablet 20 mg PO DAILY tramadol 50 MG tablet 50 mg PO QIDP PRN (Reason: Moderate Pain) Qty: 20 1RF celecoxib 200 MG capsule 200 mg PO DAILY Qty: 30 1RF Rx Instructions: Take one capsule daily with food Referrals Follow up/Referrals: Naty Zamora Gopal [Referring] - See instructions Activity Restrictions/Add. Instructions Additional Instructions/Restrictions: Please take 1 g of Tylenol and 600 mg of ibuprofen every 6 hours as needed for pain. Please follow-up with your primary care provider. Please return to the emergency department if you develop any new or worsening symptoms or become concerned for your health. Clinical Impressions Clinical Impression: Left wrist pain, Rheumatoid arthritis Print Language Print Language: Lao Discharge ED Provider: Danny Arias Adult HPI General Chief complaint: PAIN Stated complaint: arthritis,pain L hand meds not having affect Time Seen by Provider: 12/24/23 00:45 Mode of Arrival: Ambulatory Source of Information: Patient Limitations: No Limitations Description of Symptoms (Recalled from ER Triage Doc. by RN): pt reports rhuematoid arthritis in both hands she was out of her medications and just recently got a refil and is expiercing and flare up in her left hand/wrist since yesterday. today when leaving work the pain became excuritiating . History of Present Illness HPI narrative: 63-year-old female with reported history of rheumatoid arthritis presents with left wrist pain. She reports that the pain started a couple of days ago and has been worsening. She is usually on methotrexate but had been off it for several months. She just restarted that earlier this week. She reports that she has not taken anything else for pain over the last few days. She reports that she fell on it yesterday on her birthday, this worsened the pain. Related Data Home Medications ?Medication ?Instructions ?Recorded ?Confirmed paroxetine HCl 20 mg tablet 20 mg PO DAILY Anxiety 07/25/21 08/28/22 Previous Rx's ?Medication ?Instructions ?Recorded celecoxib 200 mg capsule 200 mg PO DAILY #30 caps 06/01/20 tramadol 50 mg tablet 50 mg PO QIDP PRN Moderate Pain 07/31/21 #20 tabs Allergies Allergy/AdvReac Type Severity Reaction Status Date / Time No Known Allergies Allergy Verified 08/28/22 15:28 [facility] Disclaimer: The information contained in this section may have been updated after the patient was seen, as this information can be updated by other users. Social History Smoking Status: Never smoker alcohol intake: never substance use type: denies use current occupational status: employed Travel in the last 8 weeks: None household members: children housing: house ROS Obtained: Yes All systems reviewed & no additional complaints except as documented Physical Exam General General appearance: alert and in no apparent distress Head Head exam: atraumatic and normocephalic Eye Eye exam: Present normal appearance, PERRL and EOMI ENT ENT exam: Present normal oropharynx and normal external ear exam Neck Neck exam: Present normal inspection and full ROM Chest Chest inspection: Present normal inspection and symmetric chest wall rise; Absent tenderness Respiratory Respiratory exam: Present normal lung sounds bilaterally; Absent respiratory distress Cardiovascular Cardiovascular exam: Present regular rate and normal rhythm Abdominal Exam Abdominal exam: Present soft; Absent distention, tenderness or guarding Extremities Exam Extremities exam: Present other (Tenderness of the left wrist with some mild swelling. Pain with active range of motion.) Back Exam Back exam: Present normal inspection; Absent tenderness Neurological Exam Neurological exam: Present alert and oriented X3; Absent motor sensory deficit Psychiatric Psychiatric exam: Present normal affect and normal mood Skin Skin exam: Present warm, dry and normal color Lymphatic Lymphatic Findings: no adenopathy Medical Decision Making Medical Records Medical records reviewed: Yes I reviewed the patient's medical records. Screening: Per USPSTF and CDC recommendations, given the prevalence of disease in our region, it is our hospital?s policy to screen for HIV and viral Hepatitis for all patients aged 18 and over and those with ongoing risk factors. Ang Inquiry Pt receiving controlled substance: No Ang was queried for this patient: No Vital Signs: 12/24/23 00:51 12/24/23 01:11 Temperature 97.9 F 97.9 F Temperature Source Oral Oral Pulse Rate 77 Pulse Rate [Right] 77 Respiratory Rate 17 16 Blood Pressure 134/62 Blood Pressure [Right Arm] 134/62 Blood Pressure Mean [Right Arm] 86 02 Sat by Pulse Oximetry 99 Oxygen Delivery Method Room Air Lab Data Lab results reviewed: Yes I reviewed the patient's lab results. Orders (Tests/Meds): ED MEDICATIONS Discontinued Medications Generic Name Dose Route Start Last Admin Trade Name Edmar PRN Reason Stop Dose Admin Acetaminophen 1,000 mg 12/24/23 00:54 12/24/23 00:57 Acetaminophen 500mg Tab PO 12/24/23 00:55 1,000 mg ONCE ONE Administration Ketorolac Tromethamine 30 mg 12/24/23 00:54 12/24/23 00:57 Ketorolac 30mg/Ml Vial IM 12/24/23 00:55 30 mg ONCE ONE Administration ORDERS Category Date Time Status Wrist XR left 2 views [XR wrist LT 2V] Stat Exams 12/24/23 00:54 Completed Medical Decision Narrative: 63-year-old female with history of rheumatoid arthritis, recently reinitiated on her methotrexate, presents for a couple days of left wrist pain, also fell yesterday. History was obtained via interactive discussion with patient, chart review. On arrival, patient is [afebrile, hemodynamically stable, satting appropriately, alert, oriented x4, GCS 15], moving all extremities spontaneously. Full physical exam performed and significant for left wrist pain and swelling. Differential includes but is not limited to fracture, dislocation, return arthritis flare. Patient was given Tylenol, Toradol for symptomatic management and correction of underlying abnormalities. Workup initiated including radiograph of the left wrist. On re-evaluation, patient [remains afebrile, HD stable.] Imaging independently interpreted by me and significant for no evidence of fracture. See radiology read for full review of final results. Given patient history, exam and workup, patient's presentation most likely represents mild monoarticular flare of her rheumatoid arthritis. I discussed with patient the utility of systemic steroids. She reports that the last time she had them she did not really feel like it worked. Given that it is monoarticular and she has not had symptomatic improvement with steroids in the past, we will hold off on them at this time. She was discharged in stable condition with return precautions. She was instructed to take Tylenol and ibuprofen for pain. Procedures Risk/Benefits of Procedure(s) Were Explained: Yes Critical Care Critical Care Time Critical Care Time: No
[2023-12-24] MEDS: KETOROLAC 30MG/ML VIAL 30 MG IM (00:57)
[2023-12-24] MEDS: ACETAMINOPHEN 500MG TAB 1000 MG PO (00:57)
[2023-12-24 01:11] VITALS: BP 134/62; PULSE 77; RESP 16; TEMP 36.6; O2SAT 99
== END 2023-12-24 01:14 | disposition home or self-care (01) ==
PROVIDERS: Emergency Provider Emergency Medicine; PCP Family Medicine
DX: M25.531 Pain in right wrist (principal); M06.9 Rheumatoid arthritis, unspecified
CPT/HCPCS: 73100; 96372; 99283; J1885